=== PATIENT | female | born 1950 | race Caucasian/White ===

== ENCOUNTER 2024-08-01 17:31 | Inpatient (IN) | payer OTHER, SELFPAY ==
[2024-08-01] VITALS (8 sets, daily range): BP systolic 155–178; BP diastolic 82–97; BMI 22.8
[2024-08-01 12:01] LABS: % Eosinophils 1.8 % (0-6); % Immature Granulocytes 0.3 % (0-0.5); % Lymphocytes 45.1 % (20.5-51.1); % Monocytes 10.6 % (1.7-9.3); % Neutrophils 41.2 % (42.2-75.2); Absolute Eosinophils 0.1 10^3/uL (0-0.7); Absolute Lymphocytes 1.7 10^3/uL (1.2-3.4); Absolute Monocytes 0.4 10^3/uL (0.1-0.6); Absolute Neutrophils 1.6 10^3/uL (1.4-6.5); Hematocrit 35.7 % (37.0-47.0); Hemoglobin 12.3 g/dL (12.0-16.0); Mean Corp Hgb Conc. 34.5 g/dL (33.0-37.0); Mean Corpuscular Hgb 30.8 pg (27.0-31.0); Mean Corpuscular Volume 89.3 fL (81.0-99.0); Mean Platelet Volume 10.9 fL (7.4-10.4); Nucleated Red Blood Cells % 0 %; Platelet Count 201 10^3/uL (130-400); Red Cell Dist. Width 13.1 % (11.5-14.5); White Blood Cell Count 3.9 10^3/uL (4.8-10.8)
--- NOTE | 2024-08-01 12:34 | ED.GENMED ---
History of Present Illness
General
Chief Complaint: Abdominal Pain
Time Seen by Provider: 08/01/24 12:34
History of Present Illness
History of Present Illness:
TIME OF INITIAL ENCOUNTER: 12:35 PM
HPI: The patient came in from home by ambulance. Over the past several days, the patient's been having waves of nausea, lightheadedness/dizziness that worsens with changes in head position. She has a history of Parkinson's. She has not been
taking her medication for blood pressure but daughter has been giving her most of her medications for Parkinson's (2 times a day instead of 3 times a day). The patient reports no abdominal pain. She has had some cognitive issues in the past but
her cognitive dysfunction appears to be worse now. Urinary incontinence is chronic.
EXAM:
GENERAL: Well appearing in no distress
HEENT: Moist oral mucosa
CARDIOVASCULAR: No murmurs, normal heart rate, regular rhythm, No chest wall tenderness
PULMONARY: No respiratory distress, breath sounds are clear and equal
ABDOMEN: Soft with no peritoneal signs, no tenderness
NEUROLOGIC: Fair strength all extremities, no coordination deficits, normal finger-nose testing
PSYCHIATRIC: Limited insight and judgment, had significant trouble naming the month. Knows she is at [facility]
EXTREMITIES: Nontender, no edema, moves all extremities equally
SKIN: No rash, no lesions
NUMBER AND COMPLEXITY OF PROBLEMS ADDRESSED AT THE ENCOUNTER
� Chronic conditions affecting care: High blood pressure, hyperlipidemia, Parkinson's
� Acute Exacerbation and/or Progression of Chronic Illness: This is an acute problem
� Differential Diagnosis includes: Dehydration, worsening Parkinson's, positional vertigo, BPPV, nonspecific lightheadedness, medication noncompliance
AMOUNT AND/OR COMPLEXITY OF DATA TO BE REVIEWED AND ANALYZED
� I performed an independent evaluation of and my interpretation is:
EKG: Sinus 83, anterior T wave abnormality with no old to compare
CT: CT head shows dilation of the ventricles
X-rays:
Laboratory Studies: White count 3.9, hemoglobin normal, urinalysis does not show any signs of infectio, troponin less than 0.012 n
Other:
� Review of other/old records: No old records available for review
� Clinical information was obtained by an independent historian: I spoke to daughters and at bedside
� Prescriptions/Medications Considered but not given:
� Further testing considered but not performed:
RISK OF COMPLICATIONS AND/OR MORBIDITY OR MORTALITY OF PATIENT MANAGEMENT
� Social determinants of health affecting care: Lives at home, of note she is going to be evaluated for home care this coming Sunday
� Discussion with other providers: I discussed case with Dr. Hughes who agrees patient to stay in the hospital for physical therapy and consideration of LP/NPH workup.
� Escalation of care including admission/observation vs risk of discharge considered: Although the patient reports nausea she has no abdominal tenderness on exam. She reports no abdominal pain. There has been some worsening of
her mental status recently. Urinary incontinence is chronic and she has not been taking her Myrbetriq. The patient feels that taking her medications may be making her overall symptoms worse
ANY OTHER UPDATES:
The patient does feel improved after fluids, Antivert, Zofran was given. Although patient does have a neurologist at [place], family feels very concerned about her going home for outpatient management and feels she needs to stay in the hospital as
they are having trouble caring for her at home.
Phy Exam
Physical Exam
Physical Exam:
See HPI
Course
Orders/Labs/Results
Orders:
Orders
08/01/24 11:45
Complete Blood Count/With Diff Urgent
08/01/24 12:24
Electrocardiogram (*1) Urgent
Reason for Study: Vertigo / Dizzy
EKG- Treatment ONCE
08/01/24 12:29
Comprehensive Metabolic Panel Urgent
Lipase Urgent
08/01/24 12:42
Straight cath- Treatment ONCE
0.9% Sodium Chloride 1000 ml [Nss] 1,000 ml IV BOLUS
Famotidine [Pepcid] 20 mg IV NOW STA
Meclizine [Antivert] 12.5 mg PO NOW STA
Ondansetron Injectable [Zofran] 4 mg IV NOW STA
08/01/24 12:43
CT Head W/o Iv Contrast Urgent
Comment:
Reason For Exam: dizzy alt ms
08/01/24 12:46
EKG- Treatment ONCE
08/01/24 13:03
Urinalysis Reflex To Culture Urgent
Date Specimen was Collected: 08/01/24
Time Specimen was Collected: 13:02
Urine Microscopic Reflex Cult Urgent
08/01/24 13:58
Troponin I Urgent
Abnormal Lab Results
08/01/24 08/01/24 08/01/24
11:45 12:29 13:03
WBC 3.9 L 10^3/uL
(4.8-10.8)
RBC 4.00 L 10^6/uL
(4.20-5.40)
Hct 35.7 L %
(37.0-47.0)
MPV 10.9 H fL
(7.4-10.4)
Neutrophils % 41.2 L %
(42.2-75.2)
Monocytes % 10.6 H %
(1.7-9.3)
Chloride 109 H mmol/L
(98-107)
Glucose 105 H mg/dl
(70-99)
Alkaline Phosphatase 35 L U/L
(38-126)
Lipase 356 H U/L
(23-300)
Ur Occult Blood Reflex 1+ A
(Negative)
Urine RBC 3-6 A /HPF
(0-2)
08/01/24 11:45
08/01/24 12:29
Vital Signs
Initial and Last Documented VS:
Initial Vital Signs
Temp Pulse Resp Pulse Ox
36.8 C 85 18 100
08/01/24 11:37 08/01/24 11:37 08/01/24 11:37 08/01/24 11:37
Last Documented Vital Signs
Temp Pulse Resp BP Pulse Ox
36.8 C 77 18 178/88 100
08/01/24 11:37 08/01/24 14:00 08/01/24 14:00 08/01/24 14:00 08/01/24 11:37
*Critical Care Note
Total Time (30-74mins, 75-104mins- exclusive of procedures): Not Applicable
ED Attending Note
-
Portions of this chart may have been created with voice recognition software.� Occasional wrong word or��sound alike� substitutions may have occurred due to the inherent limitations of voice recognition software.
Discharge Plan
Departure
Patient Disposition: Admit
Date of Disposition: 08/01/24
Time of Disposition: 15:33
Presentation/result/management discussed w/ accepting MD/DO: Hospitalist
Discharge Problem:
Dizziness
Referrals:
Swapnil Stevens DO [Family Provider] -
Interventions
Interventions:
*Risk Screen - Suicide Last Done: 08/01/24 11:37
*General Assessment Last Done: 08/01/24 11:37
*Neglect/Abuse Screening Last Done: 08/01/24 11:37
OY-Ggiqut-Mvfrbwnagj Assessment Last Done: 08/01/24 12:35
Discharge Date and Time
Print Language: LUXEMBOURGISH
[2024-08-01] MEDS: NSS 1000 IV ×2 (12:57→22:28)
[2024-08-01] MEDS: ZOFRAN 4 MG IV (12:57)
[2024-08-01] MEDS: PEPCID 20 MG IV (12:58)
[2024-08-01] MEDS: ANTIVERT 12.5 MG PO (12:58)
[2024-08-01 13:04] LABS: ALT (SGPT) 18 U/L (0-35); AST (SGOT) 28 U/L (14-36); Albumin 4.7 g/dl (3.5-5.0); Alkaline Phosphatase 35 U/L (38-126); Blood Urea Nitrogen 14 mg/dl (7-17); Calcium 10.1 mg/dl (8.4-10.2); Carbon Dioxide 28 mmol/L (22-30); Chloride 109 mmol/L (98-107); Estimated Creatinine Clearance 63 ml/min; Glucose 105 mg/dl (70-99); Lipase 356 U/L (23-300); Potassium 4.3 mmol/L (3.5-5.1); Sodium 143 mmol/L (135-145); Total Bilirubin 0.7 mg/dl (0.2-1.3); Total Protein 7.5 g/dl (6.3-8.2); eGFR > 60.00
[2024-08-01 13:22] LABS: Urine Albumin Negative (Neg - Trace); Urine Bilirubin Negative (Negative); Urine Character Clear (Clear); Urine Color Yellow; Urine Glucose Negative (Negative); Urine Ketone Negative (Negative); Urine Leukocyte Negative (Negative); Urine Nitrite Negative (Negative); Urine Occult Blood 1+ (Negative); Urine Specific Gravity 1.015 (<1.030); Urine Urobilinogen Negative (Neg - 1+)
[2024-08-01 14:23] LABS: Urine Squamous Cell 0-2 /LPF (Few)
[2024-08-01 14:24] LABS: Urine Amorphous Seen
[2024-08-01 14:25] LABS: Urine White Cell 0-2 /HPF (0-5)
[2024-08-01 14:37] LABS: Troponin I < 0.012 ng/ml
[2024-08-01] MEDS: TYLENOL 650 MG PO (15:55)
--- NOTE | 2024-08-01 16:03 | HPS.HSE ---
Addendum entered and electronically signed by Karlos Morejon MD 08/01/24 17:39:
I personally performed a history and physical exam of the patient and discussed management with the resident. I reviewed the resident's note and agree with the documented findings and plan of care HPI/CC.
Patient is 73-year-old female with past medical history of Parkinson's disease, essential hypertension, hyperlipidemia, depression, overactive bladder was brought in by family after patient was noted to having worsening confusion over last 5 6 days.
Patient initially started developing some nausea and has been persistently nauseous for some time no reported vomiting. No abdominal pain diarrhea fever. Patient has poor oral intake for last few days. Patient started to notice having worsening
confusion as well by family member, no owning. Does have history of Parkinson although no major problem with memories. Patient balance has been problematic for some time and patient have recurrent fall, patient family denies of patient having
significant fall and head injury. Patient has walker and cane at home although not using this. Patient also complained of dizziness although no syncope reported. No reported chest discomfort/palpitation. Patient has been afebrile.
Of note patient follows with Dr. Olmedo at [facility] and has been not taking her regular medication for last 10 days or so, patient daughter has requested patient to take her home medication although patient was worried that doctor might be
giving wrong doses and did not take them.
HEENT: No pallor, cyanosis, or jaundice. Throat clear.
NECK: Supple. No JVD.
RESPIRATORY: Lungs clear to auscultation.
CVS: S1, S2 normal. RRR. No murmur, rub or gallop.
ABDOMEN: Soft, non-tender. No distension. BS+/normal.
EXTREMITIES: No peripheral cyanosis or edema.
MIG TIG WELDER: AOx3. No focal deficits.
1. Acute encephalopathy
-Reason remains unclear
- UA negative, check COVID. Afebrile
- Not on any sedating medication
- CT head showing some ventricular enlargement
- With associated balance issues check B12 level
- Continue supportive care, patient impulsive and at risk of fall. Bed alarm is recommended
2. Nausea without vomiting
- Maintain on some slow IV fluid NS at a rate of 75 mL/h
- Clear liquid diet for the night
- As needed Zofran
3. Hypertensive urgency
- Secondary to noncompliance to blood pressure medication
- Continue home regimen of losartan/Toprol
- As needed hydralazine for systolic blood pressure greater than 160
Full code
Original Note:
Family Physician
-
Family Physician: Swapnil Stevens
Chief Complaint
-
nausea, lightheadedness, dizziness
History of Present Illness
73yo F [facility] HTN, HLD, Parkinson's presented to [facility] ED for nausea, lightheadedness, and dizziness that worsens w head position change. Pt has not been taking her HTN meds and not taking her Parkinson's meds as often as she should. Hx cognitive
issues. Chronic urinary incontinence. Pt is feeling better after receiving IVF and her medications. Pt denies having a fall for the past year.
Medical History
Past Medical History
Past Medical History: Reports HTN, Hypercholesterolemia and Other (Parkinson's disease)
Past Surgical History: Reports None
Social History
Tobacco: Former Smoker
Alcohol: None
Drug: None
Living: Alone
Family History
Family History: Not pertinent
Allergies / Home Medications
Allergies reflects when Allergies were last updated in [facility].
Home Medications with original date entered in [facility]
Allergy/Medication List:
Allergies
Allergy/AdvReac Type Severity Reaction Status Date / Time
No Known Allergies Allergy Unverified 08/01/24 11:37
Home Medications
carbidopa 25 mg-levodopa 100 mg tablet 1.5 tab PO TID 08/01/24
losartan 50 mg tablet 50 mg PO DAILY 08/01/24
metoprolol succinate 25 mg tablet,extended release 24 hr (Toprol XL) 25 mg PO DAILY 08/01/24
mirabegron 50 mg tablet,extended release 24 hr (Myrbetriq) 50 mg PO DAILY 08/01/24
rosuvastatin 40 mg tablet (Crestor) 40 mg PO QPM 08/01/24
sertraline 50 mg tablet 50 mg PO DAILY 08/01/24
solifenacin 10 mg tablet (Vesicare) 10 mg PO DAILY 08/01/24
Review of Systems
-
History Source: Patient
Constitutional: Reports No Symptoms
EENT: Reports No Symptoms
Respiratory: Reports No Symptoms
Cardiac: Reports No Symptoms
Abdomen/GI: Reports No Symptoms
Musculoskeletal: Reports No Symptoms
Skin: Reports No Symptoms
Neurological: Reports No Symptoms
Physical Exam
Vital Signs
Vital Signs
Temp Pulse Resp BP Pulse Ox
98.2 F 77 18 178/88 100
08/01/24 11:37 08/01/24 14:00 08/01/24 14:00 08/01/24 14:00 08/01/24 11:37
Physical Exam
General: Well Developed, Well Nourished, No Apparent Distress and Comfortable
HEENT: NormoCephalic, Anicteric, Moist mucous membranes and Atraumatic
Respiratory: Clear and Non Labored Respirations
Cardiac: S1/S2 and Regular Rhythm
GI: Soft, Non Tender, Non Distended and Normal Bowel Sounds
Musculoskeletal: No Clubbing, No Cyanosis and No Edema
Skin: Warm and Dry
Neuro: Awake and AO x 3
Psych: Calm and Confused
Laboratory Results
-
08/01/24 11:45
08/01/24 12:29
Laboratory Results
Total Bilirubin 0.7 mg/dl (0.2-1.3) 08/01/24 12:29
AST 28 U/L (14-36) 08/01/24 12:29
ALT 18 U/L (0-35) 08/01/24 12:29
Alkaline Phosphatase 35 U/L (38-126) L 08/01/24 12:29
Troponin I < 0.012 ng/ml 08/01/24 13:58
Lipase 356 U/L (23-300) H 08/01/24 12:29
Impression/Plan
-
IMPRESSION:
73yo F [facility] HTN, HLD, Parkinson's disease presented to [facility] ED for nausea, lightheadedness, and dizziness that worsens w head position change. Pt has not been taking her HTN meds and not taking her Parkinson's meds as often as she should. Hx
cognitive issues.
PLAN:
Possible Toxic-metabolic encephalopathy vs Possible NPH
Hx of cognitive issues
- SIRS: leukopenia, tachycardia
- u/a: neg uti
- bcx x2: pending
- flu/covid: pending
- troponins undetectable
- Na wnl
- Head CT: No acute intracranial abnormality. Nonspecific dilatation of the ventricles which may be chronic and related to central volume loss with communicating hydrocephalus/normal pressure hydrocephalus also a consideration. Nonspecific mild
periventricular white matter hypoattenuation, likely reflective of microvascular ischemic disease. Transependymal flow of CSF felt less likely.
- PT/OT
- CXR
- vit b12
- bed alarms
- appreciate neurology input
Dizziness, nausea
- orthostatic vitals
- PT/OT
Leukopenia
- monitor
Elevated lipase
- possibly due to pancreatitis, though no epigastric tenderness on exam
- denies hx of pancreatitis
- monitor
Parkinson's
- neurologist Dr Pulido at [facility]
- cont home carbidopa-levodopa
HTN/HLD
- cont losartan
- cont metoprolol
- cont statin
Chronic urinary retention
- cont myrbetriq, solifenacin
Depression/Anxiety
- cont sertraline
Diet: regular
DVT ppx: lovenox
Code status: DNR
[2024-08-01] MEDS: LOVENOX 40 MG SC (20:33)
[2024-08-01] MEDS: CRESTOR 40 MG PO (20:33)
[2024-08-01 21:50] LABS: COVID-19 Antigen Negative (Negative)
[2024-08-01] MEDS: SINEMET 25-100 1.5 TABLET PO (22:27)
[2024-08-02] VITALS (8 sets, daily range): BP systolic 76–176; BP diastolic 42–97; PULSE 78–91; BMI 22.8
[2024-08-02 07:38] LABS: % Basophils 1.3 % (0-2); % Eosinophils 2.2 % (0-6); % Immature Granulocytes 0.2 % (0-0.5); % Monocytes 11.3 % (1.7-9.3); Absolute Basophils 0.1 10^3/uL (0-0.2); Absolute Eosinophils 0.1 10^3/uL (0-0.7); Absolute Lymphocytes 1.8 10^3/uL (1.2-3.4); Absolute Monocytes 0.5 10^3/uL (0.1-0.6); Hematocrit 35.2 % (37.0-47.0); Hemoglobin 11.8 g/dL (12.0-16.0); Mean Corp Hgb Conc. 33.5 g/dL (33.0-37.0); Mean Corpuscular Hgb 30.6 pg (27.0-31.0); Mean Corpuscular Volume 91.4 fL (81.0-99.0); Mean Platelet Volume 10.5 fL (7.4-10.4); Nucleated Red Blood Cells % 0 %; Platelet Count 203 10^3/uL (130-400); Red Blood Cell Count 3.85 10^6/uL (4.20-5.40); Red Cell Dist. Width 13.1 % (11.5-14.5); White Blood Cell Count 4.5 10^3/uL (4.8-10.8)
--- NOTE | 2024-08-02 07:41 | PTCARENOTE ---
Late documentation note for 08/02 1700. At this time pt requested to get back to bed. I assisted her back to bed. Ten minutes later she was very anxious, unable to get words out because she was stuttering so bad combined with trouble with word
finding difficulty. She was able to point to her phone . I looked at her phone and she was locked out when i said are you locked out she was able to say yes. . She had non verbal ques of anxiety about her phone. We called her daughter for the
code and were able to get back into her phone . pt was happier and calmer after this; however she started making multiple attempts to get out of bed to go to bathroom. She was more skidish, not following commands and getting tangled in her wires.
PT high fall risk and took extra time to check on her to ensure her safety.
[2024-08-02 08:03] LABS: ALT (SGPT) < 10 U/L (0-35); AST (SGOT) 25 U/L (14-36); Albumin 4.4 g/dl (3.5-5.0); Alkaline Phosphatase 38 U/L (38-126); Blood Urea Nitrogen 9 mg/dl (7-17); Calcium 9.7 mg/dl (8.4-10.2); Carbon Dioxide 26 mmol/L (22-30); Chloride 111 mmol/L (98-107); Estimated Creatinine Clearance 74 ml/min; Glucose 93 mg/dl (70-99); Lipase 96 U/L (23-300); Potassium 3.9 mmol/L (3.5-5.1); Sodium 144 mmol/L (135-145); Total Bilirubin 0.8 mg/dl (0.2-1.3); eGFR > 60.00
[2024-08-02 08:58] LABS: Vitamin B12 439 pg/ml (239-931)
[2024-08-02] MEDS: COZAAR 50 MG PO (09:51)
[2024-08-02] MEDS: ZOLOFT 50 MG PO (09:51)
[2024-08-02] MEDS: TOPROL XL 25 MG PO (09:51)
[2024-08-02] MEDS: COLACE 100 MG PO ×2 (09:51→20:09)
[2024-08-02] MEDS: VESICARE 10 MG PO (09:51)
[2024-08-02] MEDS: MYRBETRIQ EXTENDED RELEASE 50 MG PO (09:52)
[2024-08-02] MEDS: SINEMET 25-100 1.5 TABLET PO ×3 (09:52→22:01)
[2024-08-02] MEDS: NSS 1000 IV ×2 (09:53→17:35)
--- NOTE | 2024-08-02 11:53 | W.PN.HOSP.TC ---
Today's Communication/Plan
-
see note
await neuro input
Assessment / Plan
Assessment / Plan
1. Acute toxic metabolic encephalopathy
-Reason remains unclear
- UA negative, neg COVID. Afebrile
- Not on any sedating medication
- CT head showing some ventricular enlargement
- With associated balance issues B12 level checked and normal
- Continue supportive care, patient impulsive and at risk of fall. Bed alarm is recommended
2. Nausea without vomiting - Improved
- Maintain on some slow IV fluid for now, will discontinue once patient able to maintain food and
- Currently on reg diet
- As needed Zofran
3. Hypertensive urgency
- Secondary to noncompliance to blood pressure medication
- Continue home regimen of losartan/Toprol
- As needed hydralazine for systolic blood pressure greater than 160
4. 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
- With patient presentation and CT finding questioning some ventricular enlargement question of [employer]
- Neuro has been involved in care and await further evaluation
- Patient may benefit with diagnostic lumbar tap
- PT OT evaluation ordered
5. Overactive bladder
- Patient on Myrbetriq
6. Parkinson's disease
- Patient follows up with [facility]
- Reported noncompliance to medication by daughter
- Maintain on home dose of Sinemet 1 and half tablet 3 times daily
Full code
Total time spent ; 52 mins
Anticipated Discharge: 24 - 48 hours
Subjective/Interval History
-
Date of Service: August 02, 2024
Patient remains confused/disoriented
Afebrile overnight
No reported other acute issues
Objective Data
-
Labs:
Laboratory Results
08/02/24
06:47
WBC 4.5 L
Hgb 11.8 L
Hct 35.2 L
Plt Count 203
Sodium 144
Potassium 3.9
Chloride 111 H
Carbon Dioxide 26
BUN 9
Creatinine 0.6
Glucose 93
Calcium 9.7
Total Bilirubin 0.8
AST 25
ALT < 10
Alkaline Phosphatase 38
Vital Signs:
Vital Signs
Temp Pulse Resp BP Pulse Ox
98.6 F 80 18 132/62 99
08/02/24 07:00 08/02/24 07:00 08/02/24 07:00 08/02/24 11:45 08/02/24 07:00
I&O
08/01/24 08/02/24 08/03/24
06:59 06:59 06:59
Intake Total 240 / 240
Balance 240 / 240
Review of Systems
-
Unable to obtain full review of systems at this time due to: Acuity
Physical Exam
-
General: Negative Appears in Distress
HEENT: Negative Oxygen
Neuro: Awake, Alert and No Motor Deficits; Negative Oriented
--- NOTE | 2024-08-02 13:08 | PTCARENOTE ---
PT is alert x 1-2 self only. pt with visual hallucinations, confused with a left sided foot neglect with weakness noted throughout. while walking her to bathroom. her left foot kept being malpositioned out to the left and she was unaware of it.
When i asked her about her foot she looked down and said, 'oh yes it is sticking out' she picked her foot up and realigned it properly to continue walking. She is off balance clumpsy. PT OT worked with patient and had simliar finding. NPH with
ventricular dilation noted on CT scan, neuro consulted. PT with poor po intake IVF NSS infusing at 100 ml. BP 176 and then 134. PT made two attempts to get oob by self. her bed alarm went off. PT received education on calling for nurse. She agreed
to call nex ttime, (she did not ring). Chair alarm placed and patient now sitting in teena. yellow band on. call gallo in hand and is eating lunch
--- NOTE | 2024-08-02 16:37 | CON.NEURO ---
Neuro Assessment/Plan
Assessment
Head CT img's rev'd agree central more than cortical atrophy
a good story for NPH with several weeks of gait symptoms followed by several days of cognitive symptoms
brain mri w/o contrast
PT eval for Tinetti score, high volume tap Sunday, repeat Tinetti immediately afterwards
Parkinson's continue Sinemet 1.5 tab TID
Consultation
Order
Date of Consultation: 08/02/24
Requesting Provider: Raina Mcpherson DO
Reason for Consult: NPH
Subjective/Objective
Subjective Data
Date of Service: August 02, 2024
from h&p:
Patient is 73-year-old female with past medical history of Parkinson's disease, essential hypertension, hyperlipidemia, depression, overactive bladder was brought in by family after patient was noted to having worsening confusion over last 5 6 days.
Patient initially started developing some nausea and has been persistently nauseous for some time no reported vomiting. No abdominal pain diarrhea fever. Patient has poor oral intake for last few days. Patient started to notice having worsening
confusion as well by family member, no . Does have history of Parkinson although no major problem with memories. Patient balance has been problematic for some time and patient have recurrent fall, patient family denies of patient having
significant fall and head injury. Patient has walker and cane at home although not using this. Patient also complained of dizziness although no syncope reported. No reported chest discomfort/palpitation. Patient has been afebrile.
Of note patient follows with Dr. Olmedo at [place] [facility] and has been not taking her regular medication for last 10 days or so, patient daughter has requested patient to take her home medication although patient was worried that doctor might be
giving wrong doses and did not take them.
this afternoon, she also reports several weeks of worsening gait/balance. Today her blood pressure has come down, she reports mentation is improved but not back to baseline
Objective Data
Vital Signs
Temp Pulse Resp BP Pulse Ox
36.4 C 79 17 106/61 95
08/02/24 15:00 08/02/24 15:00 08/02/24 15:00 08/02/24 15:00 08/02/24 15:00
Lab Results
08/02/24 06:47
08/02/24 06:47
Sodium 144 mmol/L (135-145) 08/02/24 06:47
Potassium 3.9 mmol/L (3.5-5.1) 08/02/24 06:47
BUN 9 mg/dl (7-17) 08/02/24 06:47
Glucose 93 mg/dl (70-99) 08/02/24 06:47
Calcium 9.7 mg/dl (8.4-10.2) 08/02/24 06:47
Vitamin B12 439 pg/ml (239-931) 08/02/24 06:47
Patient Allergies
No Known Allergies Allergy (Unverified 08/01/24 11:37)
Physical Exam
-
Awake and alert, disoriented
face symmetric
grossly full strength
bradykinesia, cogwheel rigidity
Medications
-
Active Medications
Generic Name Dose Route Start Last Admin
Trade Name Freq PRN Reason Stop Dose Admin
Carbidopa/Levodopa 1.5 tablet 08/01/24 22:00 08/02/24 09:52
Carbidopa (25 Mg)/Levodopa (100 Mg) Regular Release Tablet PO 08/29/24 21:59 1.5 tablet
TID AGATHA Administration
Docusate Sodium 100 mg 08/02/24 08:00 08/02/24 09:51
Docusate Sodium 100 Mg Capsule PO 08/30/24 07:59 100 mg
BID AGATHA Administration
Enoxaparin Sodium 40 mg 08/01/24 18:31 08/01/24 20:33
Enoxaparin Sodium 40 Mg/0.4 Ml Syringe SC 08/29/24 18:30 40 mg
QPM AGATHA Administration
Hydralazine HCl 10 mg 08/02/24 10:18
Hydralazine 20 Mg/Ml Vial IV 08/30/24 10:17
Q4HPRN PRN
FOR SBP > 160 or DBP > 110
Sodium Chloride 1,000 mls @ 100 mls/hr 08/01/24 18:31 08/02/24 09:53
Nss IV 1,000 mls
.Q10H AGATHA Administration
Losartan Potassium 50 mg 08/02/24 08:00 08/02/24 09:51
Losartan 50 Mg Tablet PO 08/30/24 07:59 50 mg
DAILY AGATHA Administration
Metoprolol Succinate 25 mg 08/02/24 08:00 08/02/24 09:51
Metoprolol 25 Mg Extended Release Tablet PO 08/30/24 07:59 25 mg
DAILY AGATHA Administration
Mirabegron 50 mg 08/02/24 08:00 08/02/24 09:52
Mirabegron Extended Release 25 Mg Tab (Non Form) PO 08/30/24 07:59 50 mg
DAILY AGATHA Administration
Rosuvastatin Calcium 40 mg 08/01/24 18:31 08/01/24 20:33
Rosuvastatin (Crestor) 40 Mg Tablet PO 08/29/24 18:30 40 mg
QPM AGATHA Administration
Sennosides 8.6 mg 08/02/24 22:00
Sennosides (Senokot) 8.6 Mg Tablet PO 08/30/24 21:59
HS AGATHA
Sertraline HCl 50 mg 08/02/24 08:00 08/02/24 09:51
Sertraline 50 Mg Tablet PO 08/30/24 07:59 50 mg
DAILY AGATHA Administration
Sodium Chloride 0 flush 08/01/24 19:00
Sodium Chloride 0.9% (Flush) Syringe IV 08/29/24 18:59
PER PROTOCOL AGATHA
Solifenacin 10 mg 08/02/24 08:00 08/02/24 09:51
Solifenacin Succinate (Vesicare) 5 Mg Tablet PO 08/30/24 07:59 10 mg
DAILY AGATHA Administration
Home Medications
�Medication �Instructions �Recorded
carbidopa 25 mg-levodopa 100 mg 1.5 tab PO TID Neurological 08/01/24
tablet Condition
losartan 50 mg tablet 50 mg PO DAILY Blood Pressure 08/01/24
metoprolol succinate 25 mg 25 mg PO DAILY Blood Pressure 08/01/24
tablet,extended release 24 hr
(Toprol XL)
mirabegron 50 mg tablet,extended 50 mg PO DAILY Urinary Issue 08/01/24
release 24 hr (Myrbetriq)
rosuvastatin 40 mg tablet (Crestor) 40 mg PO QPM High Cholesterol 08/01/24
sertraline 50 mg tablet 50 mg PO DAILY Mental 08/01/24
Health/Anxiety
solifenacin 10 mg tablet (Vesicare) 10 mg PO DAILY Urinary Issue 08/01/24
[2024-08-02] MEDS: CRESTOR 40 MG PO (17:35)
[2024-08-02] MEDS: LOVENOX 40 MG SC (17:35)
[2024-08-02] MEDS: TYLENOL 650 MG PO (22:01)
[2024-08-02] MEDS: SENOKOT 8.6 MG PO (22:02)
[2024-08-03] MEDS: NSS 1000 IV ×2 (05:17→17:12)
[2024-08-03 05:33] LABS: Hematocrit 34.1 % (37.0-47.0); Hemoglobin 11.5 g/dL (12.0-16.0); Mean Corp Hgb Conc. 33.7 g/dL (33.0-37.0); Mean Corpuscular Hgb 31.1 pg (27.0-31.0); Mean Corpuscular Volume 92.2 fL (81.0-99.0); Mean Platelet Volume 10.6 fL (7.4-10.4); Platelet Count 176 10^3/uL (130-400); White Blood Cell Count 3.8 10^3/uL (4.8-10.8)
[2024-08-03 05:54] LABS: Blood Urea Nitrogen 9 mg/dl (7-17); Calcium 9.5 mg/dl (8.4-10.2); Carbon Dioxide 27 mmol/L (22-30); Chloride 113 mmol/L (98-107); Estimated Creatinine Clearance 63 ml/min; Glucose 103 mg/dl (70-99); Sodium 143 mmol/L (135-145); eGFR > 60.00
[2024-08-03 07:15] VITALS: BP 175/100
[2024-08-03 07:20] VITALS: BP 138/88; BP 148/104; BP 175/100; PULSE 125; PULSE 81; PULSE 87
[2024-08-03] MEDS: ZOLOFT 50 MG PO (09:17)
[2024-08-03] MEDS: COZAAR 50 MG PO (09:18)
[2024-08-03] MEDS: VESICARE 10 MG PO (09:18)
[2024-08-03] MEDS: SINEMET 25-100 1.5 TABLET PO ×3 (09:18→21:26)
[2024-08-03] MEDS: TOPROL XL 25 MG PO ×2 (09:18→12:19)
[2024-08-03] MEDS: COLACE 100 MG PO ×2 (09:18→19:56)
[2024-08-03] MEDS: MYRBETRIQ EXTENDED RELEASE 50 MG PO (09:18)
[2024-08-03 11:07] VITALS: BP 159/97
--- NOTE | 2024-08-03 11:58 | W.PN.HOSP.TC ---
Today's Communication/Plan
-
for large volume LP tomorrow
repeat ambulation assessment after
increase toprol dose
continue supportive care
Assessment / Plan
Assessment / Plan
1. Acute toxic metabolic encephalopathy - Ongoing
- Reason remains unclear
- UA negative, neg COVID. Afebrile
- Not on any sedating medication
- CT head showing some ventricular enlargement
- With associated balance issues B12 level checked and normal
- Continue supportive care, patient impulsive and at risk of fall. Bed alarm is recommended
2. 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
- With patient presentation and CT finding questioning some ventricular enlargement question of NPH
- Neuro has been involved in care and await further evaluation
- MRI brain without contrast done and result pending, patient had some word finding difficulty today in the morning
- Neurology intending to do large-volume lumbar tap for blood pressure evaluation for improvement of gait/symptoms
3. Nausea without vomiting - Improved
- Maintain on some slow IV fluid for now, will discontinue once patient able to maintain food and
- Currently on reg diet
- As needed Zofran
4. Hypertensive urgency
- Secondary to noncompliance to blood pressure medication
- Continue home regimen of losartan/Toprol
- As needed hydralazine for systolic blood pressure greater than 160
- Patient blood pressure/heart rate was uncontrolled in the morning today, improved after morning dose. Increasing Toprol to 50 mg daily
5. Overactive bladder
- Patient on Myrbetriq
6. Parkinson's disease
- Patient follows up with [place] [facility]
- Reported noncompliance to medication by daughter
- Maintain on home dose of Sinemet 1 and half tablet 3 times daily
Full code
Total time spent ; 51 mins
Anticipated Discharge: 24 - 48 hours
Subjective/Interval History
-
Date of Service: August 03, 2024
Patient remains disoriented
Noted to be tachycardic hypotensive in the morning although asymptomatic beside minimal headache
Objective Data
-
Labs:
Laboratory Results
08/03/24
05:06
WBC 3.8 L
Hgb 11.5 L
Hct 34.1 L
Plt Count 176
Sodium 143
Potassium 4.0
Chloride 113 H
Carbon Dioxide 27
BUN 9
Creatinine 0.7
Glucose 103 H
Calcium 9.5
Vital Signs:
Vital Signs
Temp Pulse Resp BP Pulse Ox
97.7 F 75 16 159/97 99
08/03/24 11:07 08/03/24 11:07 08/03/24 11:07 08/03/24 11:07 08/03/24 07:15
I&O
08/02/24 08/03/24 08/04/24
06:59 06:59 06:59
Intake Total 240 / 240 2400 / 2400
Balance 240 / 240 2400 / 2400
Review of Systems
-
Unable to obtain full review of systems at this time due to: Acuity
Physical Exam
-
General: Negative Appears in Distress
HEENT: Negative Oxygen
Respiratory: Clear to Auscultation
Cardiac: Regular Rhythm and S1/S2; Negative Murmur
Neuro: Awake, Alert and No Motor Deficits; Negative Oriented
[2024-08-03 15:10] VITALS: BP 144/79
[2024-08-03] MEDS: LOVENOX 40 MG SC (17:12)
[2024-08-03] MEDS: CRESTOR 40 MG PO (17:12)
[2024-08-03] MEDS: SENOKOT 8.6 MG PO (21:27)
[2024-08-03 23:40] VITALS: BP 149/84
[2024-08-04] VITALS (11 sets, daily range): BP systolic 65–157; BP diastolic 59–91
[2024-08-04 06:27] LABS: Hematocrit 36.7 % (37.0-47.0); Hemoglobin 12.4 g/dL (12.0-16.0); Mean Corp Hgb Conc. 33.8 g/dL (33.0-37.0); Mean Corpuscular Hgb 30.8 pg (27.0-31.0); Mean Corpuscular Volume 91.1 fL (81.0-99.0); Mean Platelet Volume 10.7 fL (7.4-10.4); Platelet Count 210 10^3/uL (130-400); Red Blood Cell Count 4.03 10^6/uL (4.20-5.40); Red Cell Dist. Width 12.9 % (11.5-14.5); White Blood Cell Count 5.6 10^3/uL (4.8-10.8)
[2024-08-04 06:47] LABS: Blood Urea Nitrogen 8 mg/dl (7-17); Calcium 9.7 mg/dl (8.4-10.2); Carbon Dioxide 27 mmol/L (22-30); Chloride 111 mmol/L (98-107); Estimated Creatinine Clearance 74 ml/min; Glucose 106 mg/dl (70-99); Potassium 3.9 mmol/L (3.5-5.1); Sodium 143 mmol/L (135-145); eGFR > 60.00
--- NOTE | 2024-08-04 07:52 | W.PN.HOSP.TC ---
Addendum entered and electronically signed by Anu Snell MD 08/04/24 15:53:
I saw and evaluated the patient independently. I reviewed the resident�s note and agree with findings and plan as documented by Dr. Mcpherson.
GENERAL: well developed, well nourished, female in no apparent distress
HEENT: NC/AT
HEART: regular rate and rhythm, +S1, +S2
LUNGS : clear to auscultation bilaterally
ABDOM: soft, nontender, nondistended, + bowel sounds
EXT: no cyanosis, clubbing, or edema
NEUROLOGIC: grossly intact
Acute toxic metabolic encephalopathy - Ongoing --to me more like confusion/dementia--concern for NPH--apprec neuro--await large volume LP followed by therapy re-eval-- UA negative, neg COVID- Afebrile-- Not on any sedating medication- With
associated balance issues B12 level checked and normal
Suspected NPH- With patient presentation and CT finding questioning some ventricular enlargement question of NPH- Neuro has been involved in care and await further evaluation- MRI brain without contrast done and result pending, patient had some word
finding difficulty today in the morning- Neurology intending to do large-volume lumbar tap for blood pressure evaluation for improvement of gait/symptoms
Nausea without vomiting - Improved-- As needed Zofran
Hypertensive urgency- Secondary to noncompliance to blood pressure medication- Continue home regimen of losartan/Toprol- As needed hydralazine for systolic blood pressure greater than 160
Overactive bladder-- Patient on Myrbetriq
Parkinson's disease- Patient follows up with [place] neurolog[facility]- Reported noncompliance to medication by daughter- Maintain on home dose of Sinemet 1 and half tablet 3 times daily
code status--Full code
Original Note:
Today's Communication/Plan
-
- LP today
- PT/OT re-eval s/p LP
Assessment / Plan
Assessment / Plan
IMPRESSION:
73yo F [facility] HTN, HLD, Parkinson's disease presented to [facility] ED for nausea, lightheadedness, and dizziness that worsens w head position change. Pt has not been taking her HTN meds and not taking her Parkinson's meds as often as she should. Hx
cognitive issues.
PLAN:
Toxic-metabolic encephalopathy vs possible NPH
Hx of cognitive issues
- SIRS: leukopenia, tachycardia
- u/a: neg uti
- bcx x2: no growth at 48h
- flu/covid: neg
- vit B12 WNL
- Head CT: No acute intracranial abnormality. Nonspecific dilatation of the ventricles which may be chronic and related to central volume loss with communicating hydrocephalus/normal pressure hydrocephalus also a consideration. Nonspecific mild
periventricular white matter hypoattenuation, likely reflective of microvascular ischemic disease. Transependymal flow of CSF felt less likely.
- CXR: No acute cardiopulmonary abnormality.
- brain MRI: No acute intracranial abnormality noted. Moderate atrophy with sequelae of moderate small vessel ischemic disease. There is mild prominence of the ventricular system, however there are no additional findings suggestive of normal
pressure hydrocephalus.
- PT/OT - reevaluate s/p LP
- neuro input appreciated - possible diagnostic/therapeutic LP
Dizziness, nausea likely secondary to orthostatic HoTN
- improved
- orthostatic vitals - positive
- PT/OT - recommend acute rehab
Hypertensive urgency
- secondary to noncompliance to BP meds
- cont home toprol/losartan
- hydralazine for SBP>160
Elevated lipase
- possibly due to pancreatitis, though no epigastric tenderness on exam
- denies hx of pancreatitis
- monitor
Parkinson's
- neurologist Dr Pulido at [place]
- reported noncompliance
- cont home carbidopa-levodopa
HTN/HLD
- cont losartan
- cont metoprolol
- cont statin
Overactive bladder
- cont myrbetriq, solifenacin
Depression/Anxiety
- cont sertraline
Diet: regular
DVT ppx: lovenox
Code status: DNR
Anticipated Discharge: 24 - 48 hours
Subjective/Interval History
-
Date of Service: August 04, 2024
No acute overnight events. PT/OT recommending acute rehab. Pt endorses difficulty with word finding
Objective Data
-
Labs:
Laboratory Results
08/04/24 08/04/24
05:50 07:50
WBC 5.6
Hgb 12.4
Hct 36.7 L
Plt Count 210
PT Pending
INR Pending
Sodium 143
Potassium 3.9
Chloride 111 H
Carbon Dioxide 27
BUN 8
Creatinine 0.6
Glucose 106 H
Calcium 9.7
Vital Signs:
Vital Signs
Temp Pulse Resp BP Pulse Ox
98.6 F 74 18 131/86 97
08/04/24 07:42 08/04/24 07:42 08/04/24 07:42 08/04/24 07:42 08/04/24 07:42
I&O
08/03/24 08/04/24 08/05/24
06:59 06:59 06:59
Intake Total 2400 / 2400 2139 / 2139
Balance 2400 / 2400 2139 / 2139
Review of Systems
-
History Source: Patient
Constitutional: Reports No Symptoms
[2024-08-04 08:10] LABS: PT 13.7 Sec (11.4-14.6)
[2024-08-04] MEDS: SINEMET 25-100 1.5 TABLET PO ×3 (09:03→20:59)
[2024-08-04] MEDS: COLACE PO (09:03)
[2024-08-04] MEDS: ZOLOFT 50 MG PO (09:05)
[2024-08-04] MEDS: VESICARE 10 MG PO (09:05)
[2024-08-04] MEDS: COZAAR 50 MG PO (09:05)
[2024-08-04] MEDS: TOPROL XL 50 MG PO (09:05)
[2024-08-04] MEDS: MYRBETRIQ EXTENDED RELEASE 50 MG PO (09:05)
--- NOTE | 2024-08-04 16:59 | W.PN.UPDATE ---
Update Note
Progress Note Update
LP performed. Drained 8 cc of fluid. Fluid was at low pressure and took a long time to drain, not practical to do high volume drainage.
--- NOTE | 2024-08-04 17:02 | CM ---
Patient seen at bedside with physicians. Patient for procedure today and will review for possible PM&R consult. CM will continue to follow for discharge planning needs.
Plan; PM&R consult acute rehab.
[2024-08-04 17:32] LABS: Spinal Fluid Glucose 76 mg/dl (40-70); Spinal Fluid Protein 74 mg/dl (12-60)
[2024-08-04] MEDS: CRESTOR 40 MG PO (17:34)
[2024-08-04] MEDS: LOVENOX 40 MG SC (17:35)
[2024-08-04] MEDS: TYLENOL 650 MG PO (17:35)
[2024-08-04 17:43] LABS: CSF Clarity Clear; CSF Color Colorless; CSF Tube # 3; White Cell Count/CSF 1 mm^3 (0-5)
[2024-08-04 17:44] LABS: Red Cell Count/CSF 4 mm^3
--- NOTE | 2024-08-04 18:14 | W.PN.NEURO.1 ---
Today's Communication / Plan
-
CSF viral encephalitis PCR, autoimmune/paraneoplastic antibodies,
start IVIG,
CT chest/abd/pelvis cancer screen
Neuro Assessment/Plan
Assessment
Head CT img's rev'd agree central more than cortical atrophy
brain mri w/o contrast showing central atrophy, white matter changes, no other signs of NPH
NPH has been ruled out, no need for repeat tinetti
CSF WBC 1, glucose 76, protein 74,
with ~1 week of memory loss, rapidly progressing, and now hallucinations, no apparent acute medical illness to explain this, could be consistent with encephalitis, with autoimmune more likely than viral. will check CSF viral encephalitis PCR,
autoimmune/paraneoplastic antibodies, start IVIG, CT chest/abd/pelvis cancer screen
Parkinson's continue Sinemet 1.5 tab TID
Subjective/Objective
Subjective Data
Date of Service: August 04, 2024
had LP today, CSF low pressure, 8 cc drained, not possible to do high volume tap
nurse reports after procedure patient seeing rainbows (hallucination) which patient now denying.
Objective Data
Vital Signs
Temp Pulse Resp BP Pulse Ox
36.7 C 67 16 156/91 100
08/04/24 18:00 08/04/24 18:00 08/04/24 18:00 08/04/24 18:00 08/04/24 18:00
Lab Results
08/04/24 05:50
08/04/24 05:50
PT 13.7 Sec (11.4-14.6) 08/04/24 07:50
INR 1.00 08/04/24 07:50
Sodium 143 mmol/L (135-145) 08/04/24 05:50
Potassium 3.9 mmol/L (3.5-5.1) 08/04/24 05:50
BUN 8 mg/dl (7-17) 08/04/24 05:50
Glucose 106 mg/dl (70-99) H 08/04/24 05:50
Calcium 9.7 mg/dl (8.4-10.2) 08/04/24 05:50
Vitamin B12 439 pg/ml (103-931) 08/02/24 06:47
Patient Allergies
No Known Allergies Allergy (Unverified 08/01/24 11:37)
[2024-08-04] MEDS: SENOKOT 8.6 MG PO (21:00)
[2024-08-04] MEDS: COLACE 100 MG PO (21:01)
[2024-08-04] MEDS: GAMMAGARD 50 IV (21:25)
[2024-08-04] MEDS: GAMMAGARD 200 IV (22:30)
[2024-08-05] VITALS (11 sets, daily range): BP systolic 71–178; BP diastolic 30–110
[2024-08-05 07:04] LABS: Hematocrit 36.3 % (37.0-47.0); Hemoglobin 12.3 g/dL (12.0-16.0); Mean Corp Hgb Conc. 33.9 g/dL (33.0-37.0); Mean Corpuscular Hgb 30.6 pg (27.0-31.0); Mean Corpuscular Volume 90.3 fL (81.0-99.0); Mean Platelet Volume 10.3 fL (7.4-10.4); Platelet Count 183 10^3/uL (130-400); Red Blood Cell Count 4.02 10^6/uL (4.20-5.40); Red Cell Dist. Width 12.9 % (11.5-14.5); White Blood Cell Count 4.4 10^3/uL (4.8-10.8)
[2024-08-05] MEDS: VESICARE 10 MG PO (07:38)
[2024-08-05] MEDS: ZOLOFT 50 MG PO (07:38)
[2024-08-05] MEDS: COLACE 100 MG PO ×2 (07:38→21:00)
[2024-08-05] MEDS: MYRBETRIQ EXTENDED RELEASE 50 MG PO (07:38)
[2024-08-05] MEDS: COZAAR 50 MG PO (07:38)
[2024-08-05] MEDS: SINEMET 25-100 1.5 TABLET PO ×3 (07:39→21:31)
[2024-08-05] MEDS: TOPROL XL 50 MG PO (07:39)
[2024-08-05 07:54] LABS: Blood Urea Nitrogen 12 mg/dl (7-17); Calcium 9.7 mg/dl (8.4-10.2); Carbon Dioxide 27 mmol/L (22-30); Chloride 109 mmol/L (98-107); Estimated Creatinine Clearance 63 ml/min; Glucose 109 mg/dl (70-99); Potassium 3.6 mmol/L (3.5-5.1); Sodium 144 mmol/L (135-145); eGFR > 60.00
[2024-08-05] MEDS: OMNIPAQUE 50 ML PO (08:13)
--- NOTE | 2024-08-05 08:27 | W.PN.HOSP.TC ---
Addendum entered and electronically signed by Anu Snell MD 08/05/24 14:40:
I saw and evaluated the patient independently. I reviewed the resident�s note and agree with findings and plan as documented by Dr. Mcpherson.
GENERAL: well developed, well nourished, female in no apparent distress
HEENT: NC/AT
HEART: regular rate and rhythm, +S1, +S2
LUNGS : clear to auscultation bilaterally
ABDOM: soft, nontender, nondistended, + bowel sounds
EXT: no cyanosis, clubbing, or edema
NEUROLOGIC: grossly intact
Acute toxic metabolic encephalopathy--to me more like confusion/dementia--concern for NPH ruled out with low flow spinal tap and 8mls removed--apprec neuro-- UA negative, neg COVID- Afebrile-- Not on any sedating medication-- B12 level checked and
normal--neuro suspects encephalitis--viral, autoimmune, etc--IVIG ordered but pt now hypertensive--immunoglobulins stopped and IV hydralazine added
Nausea without vomiting - Improved-- As needed Zofran
Hypertensive urgency- Secondary to noncompliance to blood pressure medication- Continue home regimen of losartan/Toprol- As needed hydralazine for systolic blood pressure greater than 160
Overactive bladder-- Patient on Myrbetriq
Parkinson's disease- Patient follows up with [place] neurolog[facility]- Reported noncompliance to medication by daughter- Maintain on home dose of Sinemet 1 and half tablet 3 times daily
code status--Full code
dispo--apprec Dr. Araujo--appropriate for INPT rehab
Original Note:
Today's Communication/Plan
-
.
Assessment / Plan
Assessment / Plan
IMPRESSION:
73yo F h HTN, HLD, Parkinson's disease presented to [facility] ED for nausea, lightheadedness, and dizziness that worsens w head position change. Pt has not been taking her HTN meds and not taking her Parkinson's meds as often as she should. Hx
cognitive issues.
PLAN:
Metabolic encephalopathy
Hx of cognitive issues
- SIRS: leukopenia, tachycardia
- u/a: neg uti
- bcx x2: no growth at 72h
- CSF meningitis panel: neg for all
- CSF autoimmune/paraneoplastic antibodies: pending
- EEG: mild generalized cerebral dysfunction
- PT/OT - reevaluate s/p LP
- LP: drained 8 cc of fluid - not likely NPH
- start IVIG
- neuro input appreciated
Dizziness, nausea likely secondary to orthostatic HoTN
- improved
- orthostatic vitals - positive
- PT/OT - recommend acute rehab
- physiatry consulted - recommend acute rehab once cleared by neuro
Hypertensive urgency
- secondary to noncompliance to BP meds
- cont home toprol/losartan
- hydralazine for SBP>160
Elevated lipase
- possibly due to pancreatitis, though no epigastric tenderness on exam
- denies hx of pancreatitis
- monitor
Parkinson's
- neurologist Dr Pulido at [place]
- reported noncompliance
- cont home carbidopa-levodopa
HTN/HLD
- cont losartan
- cont metoprolol
- cont statin
Overactive bladder
- cont myrbetriq, solifenacin
Depression/Anxiety
- cont sertraline
Diet: regular
DVT ppx: lovenox
Code status: DNR
Anticipated Discharge: > 48 hours
Subjective/Interval History
-
Date of Service: August 05, 2024
Pt underwent LP yesterday. Drained 8 cc of fluid. Pt tolerated procedure well.
Objective Data
-
Labs:
Laboratory Results
08/05/24
06:24
WBC 4.4 L
Hgb 12.3
Hct 36.3 L
Plt Count 183
Sodium 144
Potassium 3.6
Chloride 109 H
Carbon Dioxide 27
BUN 12
Creatinine 0.7
Glucose 109 H
Calcium 9.7
Vital Signs:
Vital Signs
Temp Pulse Resp BP Pulse Ox
97.9 F 67 16 165/90 97
08/04/24 23:00 08/05/24 07:39 08/04/24 23:00 08/05/24 07:39 08/04/24 23:00
I&O
08/04/24 08/05/24 08/06/24
06:59 06:59 06:59
Intake Total 2140 / 2140 240 / 240
Balance 2140 / 2140 240 / 240
Review of Systems
-
Constitutional: Reports No Symptoms
Respiratory: Reports No Symptoms
Cardiac: Reports No Symptoms
Abdomen/GI: Reports No Symptoms
Neuro: Reports No Symptoms
Physical Exam
-
General: Well Developed and Well Nourished
HEENT: Normocephalic and Atraumatic
Respiratory: Clear to Auscultation and Non Labored Respirations
Cardiac: Regular Rhythm and S1/S2
GI: Soft, Nontender, Nondistended and Normal Bowel Sounds
Musculoskeletal: No Clubbing, No Cyanosis and No Edema
Neuro: Awake and Alert
Psych: Calm
--- NOTE | 2024-08-05 08:57 | CON.MD ---
Consultation - Medical
-
Date of Consult:�08/05/2024
Referring Provider:�Dr. Anu Snell
Chief Complaint:�Debility
�
History of Present Illness:�73-year-old female with PMH (as below) presented to [facility] on 08/01/2024 with nausea, lightheadedness, and dizziness. Of note patient not been taking her blood pressure or Parkinson's medications as she
should. Has some history of cognitive issues and chronic urinary incontinence. Was given IV fluid with improvement. Head CT: No acute intracranial abnormality. Nonspecific dilatation of the ventricles which may be chronic and related to central
volume loss with communicating hydrocephalus/normal pressure hydrocephalus also a consideration. Nonspecific mild periventricular white matter hypoattenuation, likely reflective of microvascular ischemic disease. Transependymal flow of CSF felt less
likely. Diagnosed with acute toxic metabolic encephalopathy. Also noted with hypertensive urgency with continued losartan and metoprolol. Seen by neurology with concern for normal pressure hydrocephalus. She had a lumbar puncture on 08/04/2024
with 8 cc of fluid and low pressure taking a long time to drain making a high volume drainage not practical per Dr. Jones. Per neurology NPH was ruled out. CSF with elevated glucose and protein. With approximately 1 week of memory loss, rapid
progression and development of hallucinations differential includes encephalitis with autoimmune more likely than viral etiology. Viral encephalitis PCR, autoimmune/paraneoplastic antibodies ordered. Patient started on IVIG with plan for CT of the
chest abdomen pelvis for cancer screening.
Overall patient says she feels okay. She notes that she was told that she now has Parkinson's disease. She denies any specific concerns. Denies any pain, trouble seeing, trouble swallowing, weakness, numbness or tingling.
�
Past Medical History:�HTN, HLD, Parkinson's disease
Procedure History:�None
Family History:�Denies
�
Social History:�
Functional Level Premorbidly:�Modified independent with all activities�using rolling walker
Functional Level Currently: Min assist transfers, min assist ambulating 10 feet with rolling walker with contact-guard. Min assist ambulating 25 feet x 2 without device.�
Tobacco:�Former smoker
Alcohol:�Denies�
Drug use:�Denies�
�
Lives with:�Spouse
24-hour assistance available:�Yes
Number of floors:�2
# steps to enter:�2
# steps to second floor: Full flight
Potential First floor set up:�Yes
Driving:�No
Occupation:�Retired
�
�
Allergies:�
Allergy/AdvReac Type Severity Reaction Status Date / Time
No Known Allergies Allergy Unverified 08/01/24 11:37
�
Review of Systems:�
Constitutional: (x) abNormal _Fatigue
Eye: (x) Normal _
Ear/Nose/Throat: (x) Normal _
Respiratory: (x) Normal _
Cardiovascular: (x) Normal _
Gastrointestinal: (x) Normal _
Genitourinary: (x) Normal _
Musculoskeletal: (x) abNormal _ difficulty with walking
Integumentary: (x) Normal _
Neurologic: (x) abNormal _ difficulty thinking
Psychiatric: (x) Normal _
Endocrine: (x) Normal _
Hematologic/Lymphatic: (x) Normal _
Allergic/Immunologic: (x) Normal _
�
Medications:�
Active Current Visit Medication List
Category Date Time Status
Acetaminophen [Tylenol] Med 08/02/24 21:46 Active
650 mg PO Q4HPRN PRN
Carbidopa/Levodopa [Sinemet 25-100] Med 08/01/24 22:00 Active
1.5 tablet PO TID
Docusate Sodium [Colace] Med 08/02/24 08:00 Active
100 mg PO BID
Enoxaparin Sodium [Lovenox] Med 08/01/24 18:31 Active
40 mg SC QPM
Flush (0.9% Sodium Chloride) [Flush (Nss)] Med 08/01/24 19:00 Active
See Dose Instructions IV PER PROTOCOL
HydrALAZINE [Apresoline] Med 08/02/24 10:18 Active
10 mg IV Q4HPRN PRN
Immune Globulin 20 Grams/200Ml [Gammagard] Med 08/05/24 13:00 Active
20 gram in 200 ml IV ONCE@1300
Immune Globulin 20 Grams/200Ml [Gammagard] Med 08/06/24 13:00 Active
20 gram in 200 ml IV ONCE@1300
Immune Globulin 20 Grams/200Ml [Gammagard] Med 08/07/24 13:00 Active
20 gram in 200 ml IV ONCE@1300
Immune Globulin 20 Grams/200Ml [Gammagard] Med 08/08/24 13:00 Active
20 gram in 200 ml IV ONCE@1300
Immune Globulin 5 Grams/50 ml [Gammagard] Med 08/05/24 12:00 Active
5 gram in 50 ml IV ONCE@1200
Immune Globulin 5 Grams/50 ml [Gammagard] Med 08/06/24 12:00 Active
5 gram in 50 ml IV ONCE@1200
Immune Globulin 5 Grams/50 ml [Gammagard] Med 08/07/24 12:00 Active
5 gram in 50 ml IV ONCE@1200
Immune Globulin 5 Grams/50 ml [Gammagard] Med 08/08/24 12:00 Active
5 gram in 50 ml IV ONCE@1200
Losartan [Cozaar] Med 08/02/24 08:00 Active
50 mg PO DAILY
Metoprolol Xl [Toprol Xl] Med 08/04/24 08:00 Active
50 mg PO DAILY
Mirabegron Extended Release [Myrbetriq Extended Release Med 08/02/24 08:00 Active
]
50 mg PO DAILY
Rosuvastatin Calcium [Crestor] Med 08/01/24 18:31 Active
40 mg PO QPM
Sennosides [Senokot] Med 08/02/24 22:00 Active
8.6 mg PO HS
Sertraline HCl [Zoloft] Med 08/02/24 08:00 Active
50 mg PO DAILY
Solifenacin Succinate [Vesicare] Med 08/02/24 08:00 Active
10 mg PO DAILY
�
Vitals:�
Temp Pulse Resp BP Pulse Ox
97.8 F 67 16 165/90 99
08/05/24 07:30 08/05/24 07:39 08/05/24 07:30 08/05/24 07:39 08/05/24 07:30
Height 5 ft 5 in
Actual Weight 62.142 kg
Body Mass Index (BMI) 22.8
�
Physical Exam:�
General Appearance/Observation: Well-developed, well-nourished female in no apparent distress.�
Pain/Comfort Assessment: Denies�
Mood/Affect: Appropriate�
�
Integumentary/Operative Site:�No lesions noted during course of exam
�
Eyes: Conjunctiva/Lids: normal��� Pupils: pupils equal round and reactive to light and Accommodation
Ears/Nose/Throat: oral mucosa moist, throat clear.������������ Lips/Teeth/Gums: normal
Cardiovascular: Heart: regular, no murmur�
Pulses: dorsalis pedis 2+ bilaterally�
Respiratory: Respiratory Effort/Chest Expansion: normal������ Auscultation: Clear to auscultation bilaterally
Gastrointestinal: abdomen not tender, no distension, normal abdominal bowel sounds�
Genitourinary: No Howell�
Rectal Exam: Deferred�
Extremities:�Edema: None�Cyanosis: None�Trophic�changes: None
�
Neurology Exam:
Orientation: Alert, Oriented to self
Memory: Impaired
Comprehension: Impaired
Two step command: Impaired
Cranial Nerves:
�� CNII:�Pupillary light reflex: Intact���Visual Field: Appear intact, some difficulty with command following
�� CN III, IV, : Extraocular muscles: Intact�
�� CN V:�Facial Sensation�at�Forehead: Intact,�Maxilla: Intact,�Mandible: Intact
�� CN VII:�Facial movement: Symmetric
�� CN VIII:�Hearing: Normal
�� CN IX/X:�Speech & swallow: Normal,�Position of Uvula: Midline
�� CN XI:�Shoulder shrug: Symmetric
�� CN XII:�Tongue protrusion: Midline
Sensory:
�� Light touch: Intact in bilateral upper and lower extremities
�
Reflexes:
�� Biceps: 2+ bilaterally
�� Brachioradialis: 2+ bilaterally
�� Triceps: 2+ bilaterally
�� Patellar: 2+ bilaterally
�� Achilles: 2+ bilaterally
�� Babinski: Down going bilaterally
�� Clonus: None
�� Raji: Negative bilaterally�
Musculoskeletal:Motor: (Manual muscle scale 0-5)�
Muscle SA EF WE EE FF FA HF KE DF EHL PF
Right� 5 5 5 5 5 4 5 5 5
Left 5 5 5 5 5 4 5 5 5
�
Tone: Normal in all extremities�
Range of Motion: Passively within functional limits in all extremities�
�
Lab Results
Laboratory Data
08/05/24 06:24
08/05/24 06:24
PT 13.7 Sec (11.4-14.6) 08/04/24 07:50
INR 1.00 08/04/24 07:50
Total Bilirubin 0.8 mg/dl (0.2-1.3) 08/02/24 06:47
AST 25 U/L (14-36) 08/02/24 06:47
ALT < 10 U/L (0-35) 08/02/24 06:47
Alkaline Phosphatase 38 U/L (38-126) 08/02/24 06:47
Total Protein 7.0 g/dl (6.3-8.2) 08/02/24 06:47
Albumin 4.4 g/dl (3.5-5.0) 08/02/24 06:47
�
Diagnostic Results:�as per HPI�
PROCEDURE: MR Brain Without Contrast
CLINICAL INDICATION: NPH
TECHNIQUE: Unenhanced MRI imaging of the brain was performed. Images were obtained in multiple planes using a variety of pulse sequences including T1 weighting, T2 weighting, FLAIR, and diffusion-weighted imaging.
COMPARISON: CT head 08/01/2024
FINDINGS:
Diffusion imaging shows no hyperacute, acute, or early subacute infarction.
Scattered and areas of confluent T2/FLAIR hyperintensities within the subcortical and periventricular white matter of the bilateral cerebral hemispheres which is nonspecific, however likely sequelae of moderate small vessel ischemic disease.
Moderate parenchymal volume loss.
There is no mass or mass effect, or extra-axial fluid collection.
There is prominence of the ventricular system which is likely due to adjacent central volume loss. The closest angle appears within normal limits at the level of the posterior commissure.
Flow voids of the larger intracranial vessels are present.
Paranasal sinuses and mastoid air cells are predominantly clear.
Marrow signal pattern is within normal limits.
IMPRESSION:
No acute intracranial abnormality noted.
Moderate atrophy with sequelae of moderate small vessel ischemic disease.
There is mild prominence of the ventricular system, however there are no additional findings suggestive of normal pressure hydrocephalus.
�
Assessment
73y/o F PMH (HTN, HLD, Parkinson's disease) with 08/01/2024 with N/V/dizziness and concern for encephalitis with autoimmune more likely than viral etiology per neurology -- causing ADL and ambulatory dysfunction
Plan�
PM&R�PT/OT to increase independence with ADLs, improve balance, coordination, endurance, strength, mobility, community reintegration, decreased burden of care on others and family education.�
Metabolic encephalopathy: With approximately 1 week of memory loss, rapid progression and development of hallucinations differential includes encephalitis with autoimmune more likely than viral etiology.
-Viral encephalitis PCR, autoimmune/paraneoplastic antibodies ordered by neurology.
-Patient started on IVIG with plan for CT of the chest abdomen pelvis for cancer screening per neurology.
-Significant cognitive dysfunction.
Parkinson's disease: continue Sinemet. PT/OT
HTN: losartan 50 mg daily and metoprolol XL 50 mg daily, monitor closely. Has hydralazine IV as needed, would suggest changing to p.o. if patient requires IV blood pressure medications this will might delay transfer to rehab.�
HLD: Statin�
Mild leukopenia:Continue to monitor.�
�
Psych:Monitor mood, medications as needed.�
Skin: monitor for pressure sores/rashes/lesions.�
Pain: acetaminophen as needed.�
Bowel: Colace and Senna, PRN bisacodyl.�
Bladder: Vesicare 10 mg daily and Myrbetriq 50 mg daily. Time void, PVRs, PRN straight cath.�
DVT Prophylaxis: mechanical and Lovenox
Pulmonary: Incentive spirometry�
Safety: Continue to reinforce assistance with all transfers.�
Code Status:� DNR�per chart
Dispo�(date/plan/equipment needs): Home with family care.� Social history reviewed.�
Functional and Medical Goals:�Supervision with ADL�s, ambulation, transfers�
Discharge Destination:�Anticipate acute inpatient rehabilitation once neurologic evaluation completed and patient is medically stable
�
Thank you for allowing me to care for your patient. Please contact me with any questions or concerns.
[2024-08-05] MEDS: GAMMAGARD 50 IV ×2 (12:30→17:20)
--- NOTE | 2024-08-05 12:45 | W.PN.NEURO.1 ---
Today's Communication / Plan
-
IVIG day 2. pause infusion for the headache, give NSS 500, tylenol 650, benadryl 25 and restart after headache is better
discussed with patient's dtr
Neuro Assessment/Plan
Assessment
Head CT img's rev'd agree central more than cortical atrophy
brain mri w/o contrast showing central atrophy, white matter changes, no other signs of NPH
NPH has been ruled out, no need for repeat tinetti
CSF WBC 1, glucose 76, protein 74,
with ~1 week of memory loss, rapidly progressing, and now hallucinations, no apparent acute medical illness to explain this, could be consistent with encephalitis, with autoimmune more likely than viral. will check CSF viral encephalitis PCR,
autoimmune/paraneoplastic antibodies,
CT chest/abd/pelvis cancer screen negative
IVIG day 2. pause infusion for the headache, give NSS 500, tylenol 650, benadryl 25 and restart after headache is better
also possible that this is just progression of dementia/Parkinsons with delirium if it doesn't respond to IVIG
Parkinson's continue Sinemet 1.5 tab TID
Plan
IVIG day 2. pause infusion for the headache, give NSS 500, tylenol 650, benadryl 25 and restart after headache is better
discussed with patient's dtr
Subjective/Objective
Subjective Data
Date of Service: August 05, 2024
tolerated IVIG last night
today started IVIG and got a headache
nonsensical speech
Objective Data
Vital Signs
Temp Pulse Resp BP Pulse Ox
36.6 C 72 16 112/68 99
08/05/24 07:30 08/05/24 12:35 08/05/24 07:30 08/05/24 12:35 08/05/24 07:30
Lab Results
08/05/24 06:24
08/05/24 06:24
PT 13.7 Sec (11.4-14.6) 08/04/24 07:50
INR 1.00 08/04/24 07:50
Sodium 144 mmol/L (135-145) 08/05/24 06:24
Potassium 3.6 mmol/L (3.5-5.1) 08/05/24 06:24
BUN 12 mg/dl (7-17) 08/05/24 06:24
Glucose 109 mg/dl (70-99) H 08/05/24 06:24
Calcium 9.7 mg/dl (8.4-10.2) 08/05/24 06:24
Vitamin B12 439 pg/ml (239-931) 08/02/24 06:47
Patient Allergies
No Known Allergies Allergy (Unverified 08/01/24 11:37)
--- NOTE | 2024-08-05 12:46 | EEG.RPT ---
Electroencephalogram Report
Recording
Date of EE08/05/24
Length of EEG recordin mins
Done with Video Recording: Yes
Patient Status: Inpatient
Recording Conditions: Awake
Hyperventilation Performed: No
Photic Stimulation Performed: Yes
Report
Clinical Background:�73 year old woman with suspected autoimmune encephalitis
Introduction: A routine bedside EEG was done using [employer] 10-20 electrode placement protocol.
Background: In the most alert state, there is continuous generalized polymorphic theta activity 5-6 Hz. There is spontaneous variability and reactivity.�
Sleep: No sleep is seen.�
Focal/epileptiform: There were no focal or epileptiform discharges. No clinical or electrographic seizures occurred during this recording.
Photic stimulation: resulted in no background change. There was no photo myogenic or photoparoxysmal response.�
Impression: Continuous generalized slowing
Clinical Correlation: mild generalized cerebral dysfunction
[2024-08-05] MEDS: NSS 500 IV ×2 (13:48→19:05)
[2024-08-05] MEDS: BENADRYL 25 MG IV (13:48)
--- NOTE | 2024-08-05 14:13 | PTCARENOTE ---
S patient was assessed 30 min after IVIG infusion per protocol, pt. reported terrible headache, Bp 150/110 hr 78.
B patient admitted with toxic metabolic encephalopathy
A see online database
R contacted Dr. Hughes and Dr. Snell made aware of patients symptoms, IV Benadryl ordered, 500ml bolus NS, stopped IVIG. Dr. Hughes states he will reorder IVIG for tonight.
--- NOTE | 2024-08-05 15:46 | CM ---
Patient seen at bedside with physicians on . Patient for several more days of treatment for IVIG per physician and PM&R consult pending. Patient would like to consider Acute Rehab as per therapy recommendations. CM will send referral to [facility]
and await assessment by PM&R. CM will continue to follow for discharge planning needs.
Plan; Acute Rehab; pending assessment
[2024-08-05] MEDS: CRESTOR 40 MG PO (16:43)
[2024-08-05] MEDS: LOVENOX 40 MG SC (16:44)
[2024-08-05] MEDS: TYLENOL 650 MG PO ×2 (16:48→21:31)
[2024-08-05] MEDS: BENADRYL 25 MG PO (16:49)
[2024-08-05] MEDS: APRESOLINE 10 MG IV (17:03)
[2024-08-05] MEDS: GAMMAGARD 200 IV (18:09)
[2024-08-05 19:10] LABS: Glucose - Point of Care 132 mg/dl (70-99)
--- NOTE | 2024-08-05 19:26 | W.PN.UPDATE ---
Update Note
Progress Note Update
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
-Patient is hypotensive 74/46 While receiving IVIG, hr 88. Afebrile, SPO2 90s RA. Also, patient received one dose of PRN IV hydralazine 10mg around 5 pm.
-Before BROKE WORKER called, nursing contacted neurology regarding BP and 500cc NSS bolus was ordered. Recheck bp after fluids is 123/72, HR 75.
-Discussed with the neurologist acid conditioning worker and will hold IVIG for now.
--- NOTE | 2024-08-05 19:36 | RR ---
A Rapid Response was called on this patient, please see Rapid Response form.
--- NOTE | 2024-08-05 19:36 | PTCARENOTE ---
During change of shift patient was found to be hypotensive 70s/40s......Provider and neurologist notified. During AM shift pt. was found to be hypertensive during IVIG infusion and was given PRN hydralazine as well as tylenol and benedryl. During
this time of hypertension, pt. was c/o IVERSON. Neurology aware. IVIG stopped at change of shift when pt. was found to be hypotensive and 500 cc NS bolus given per neurology order. Pts. last BP 123/72, HR 75. Pt. is resting comfortably at this time.
Placed on tele monitoring per order; found to be NSR on monitor, and IVIG dose DCed. Plan of care continues.
[2024-08-05] MEDS: SENOKOT 8.6 MG PO (21:31)
[2024-08-06] VITALS (12 sets, daily range): BP systolic 115–150; BP diastolic 56–90
[2024-08-06] MEDS: MOTRIN 200 MG PO (00:36)
[2024-08-06 06:30] LABS: Hematocrit 34.6 % (37.0-47.0); Hemoglobin 11.8 g/dL (12.0-16.0); Mean Corp Hgb Conc. 34.1 g/dL (33.0-37.0); Mean Corpuscular Hgb 30.4 pg (27.0-31.0); Mean Corpuscular Volume 89.2 fL (81.0-99.0); Mean Platelet Volume 10.6 fL (7.4-10.4); Platelet Count 200 10^3/uL (130-400); Red Blood Cell Count 3.88 10^6/uL (4.20-5.40); Red Cell Dist. Width 13.1 % (11.5-14.5)
[2024-08-06 07:00] LABS: Blood Urea Nitrogen 12 mg/dl (7-17); Calcium 9.7 mg/dl (8.4-10.2); Carbon Dioxide 24 mmol/L (22-30); Chloride 111 mmol/L (98-107); Estimated Creatinine Clearance 63 ml/min; Glucose 97 mg/dl (70-99); Potassium 3.6 mmol/L (3.5-5.1); Sodium 141 mmol/L (135-145); eGFR > 60.00
[2024-08-06] MEDS: MYRBETRIQ EXTENDED RELEASE 50 MG PO (07:15)
[2024-08-06] MEDS: COLACE 100 MG PO ×2 (07:15→20:12)
[2024-08-06] MEDS: VESICARE 10 MG PO (07:15)
[2024-08-06] MEDS: SINEMET 25-100 1.5 TABLET PO ×3 (07:15→21:17)
[2024-08-06] MEDS: COZAAR 50 MG PO (07:16)
[2024-08-06] MEDS: ZOLOFT 50 MG PO (07:16)
[2024-08-06] MEDS: TOPROL XL 50 MG PO (07:16)
--- NOTE | 2024-08-06 08:16 | W.PN.HOSP.TC ---
Addendum entered and electronically signed by Anu Snell MD 08/06/24 15:51:
I saw and evaluated the patient independently. I reviewed the resident�s note and agree with findings and plan as documented by Dr. Mcpherson.
GENERAL: well developed, well nourished, female in no apparent distress
HEENT: NC/AT
HEART: regular rate and rhythm, +S1, +S2
LUNGS : clear to auscultation bilaterally
ABDOM: soft, nontender, nondistended, + bowel sounds
EXT: no cyanosis, clubbing, or edema
NEUROLOGIC: grossly intact with apparent dementia
Acute toxic metabolic encephalopathy--to me more like confusion/dementia--concern for NPH ruled out with low flow spinal tap and 8mls removed--apprec neuro-- UA negative, CXR neg, COVID neg- Afebrile-- Not on any sedating medication-- B12 level
checked and normal--neuro suspects encephalitis--autoimmune, etc--IVIG ordered but pt had hypertensive episode, stopped, IVIG restarted then hypotensive episode--will try again but with standing IVF--benadryl pretreatment etc--updated daughter
[place] by phone--she told me Dr. Hughes called her too.
Nausea without vomiting - Improved-- As needed Zofran
Hypertensive urgency- Secondary to noncompliance to blood pressure medication- Continue home regimen of losartan/Toprol- As needed hydralazine for systolic blood pressure greater than 160
Overactive bladder-- Patient on Myrbetriq
Parkinson's disease- Patient follows up with [facility] neurology- Reported noncompliance to medication by daughter- Maintain on home dose of Sinemet 1 and half tablet 3 times daily
code status--Full code
dispo--apprec Dr. Araujo--appropriate for INPT rehab
Original Note:
Today's Communication/Plan
-
- IVF infusion w IVIG
- repeat MRI for abrupt change in mental status w IVIG infusion
Assessment / Plan
Assessment / Plan
IMPRESSION:
73yo F pmh HTN, HLD, Parkinson's disease presented to [facility] ED for nausea, lightheadedness, and dizziness that worsens w head position change. Pt has not been taking her HTN meds and not taking her Parkinson's meds as often as she should. Hx
cognitive issues.
PLAN:
Metabolic encephalopathy
Hx of cognitive issues
- SIRS: leukopenia, tachycardia
- u/a: neg uti
- bcx x2: no growth
- CSF meningitis panel: neg for all
- CSF autoimmune/paraneoplastic antibodies: pending
- EEG: mild generalized cerebral dysfunction
- MRI 08/03: No acute intracranial abnormality
- PT/OT - reevaluate s/p LP
- LP: drained 8 cc of fluid - not likely NPH
- start IVIG - HTN then HoTN w administration
- run IVF w IVIG administration
- repeat MRI for abrupt change in mental status w IVIG administration
- neuro input appreciated
Dizziness, nausea likely secondary to orthostatic HoTN
- improved
- orthostatic vitals - positive
- PT/OT - recommend acute rehab
- physiatry consulted - recommend acute rehab once cleared by neuro
Hypertensive urgency
- secondary to noncompliance to BP meds
- cont home toprol/losartan
- hydralazine for SBP>160
Elevated lipase
- possibly due to pancreatitis, though no epigastric tenderness on exam
- denies hx of pancreatitis
- monitor
Parkinson's
- neurologist Dr Pulido at [facility]
- reported noncompliance
- cont home carbidopa-levodopa
HTN/HLD
- cont losartan
- cont metoprolol
- cont statin
Overactive bladder
- cont myrbetriq, solifenacin
Depression/Anxiety
- cont sertraline
Diet: regular
DVT ppx: lovenox
Code status: DNR
Anticipated Discharge: > 48 hours
Subjective/Interval History
-
Date of Service: August 06, 2024
IVIG infused overnight, however pt became hypotensive 74/46. physical damage appraiser neurologist contacted, IVIG stopped and 500 cc bolus administered. Today, pt is lethargic and hallucinating.
Objective Data
-
Labs:
Laboratory Results
08/06/24
05:48
WBC 4.0 L
Hgb 11.8 L
Hct 34.6 L
Plt Count 200
Sodium 141
Potassium 3.6
Chloride 111 H
Carbon Dioxide 24
BUN 12
Creatinine 0.7
Glucose 97
Calcium 9.7
Vital Signs:
Vital Signs
Temp Pulse Resp BP Pulse Ox
97.5 F 81 14 136/77 98
08/06/24 07:20 08/06/24 07:16 08/05/24 23:00 08/06/24 07:16 08/06/24 07:20
I&O
08/05/24 08/06/24 08/07/24
06:59 06:59 06:59
Intake Total 240 / 240 980 / 980
Balance 240 / 240 980 / 980
Review of Systems
-
Unable to obtain full review of systems at this time due to: Acuity
History Source: Patient
Constitutional: Reports Chills
Respiratory: Reports No Symptoms
Cardiac: Reports No Symptoms
Abdomen/GI: Reports No Symptoms
Physical Exam
-
General: Well Developed and Well Nourished
HEENT: Normocephalic and Atraumatic
Respiratory: Clear to Auscultation
Cardiac: Regular Rhythm and S1/S2
GI: Soft, Nontender, Nondistended and Normal Bowel Sounds
Musculoskeletal: No Clubbing, No Cyanosis and No Edema
Skin: Warm and Dry
Neuro: Awake
Psych: Confused
--- NOTE | 2024-08-06 10:12 | W.PN.NEURO.1 ---
Today's Communication / Plan
-
IVIG day 3. premedicate NSS 500, tylenol 650, benadryl 25
infuse IVIG lowest rate instead of titrate
Neuro Assessment/Plan
Assessment
Head CT img's rev'd agree central more than cortical atrophy
brain mri w/o contrast showing central atrophy, white matter changes, no other signs of NPH
NPH has been ruled out, no need for repeat Tinetti
CSF WBC 1, glucose 76, protein 74,
with ~1 week of memory loss, rapidly progressing, and now hallucinations, no apparent acute medical illness to explain this, could be consistent with encephalitis, with autoimmune more likely than viral. will check CSF viral encephalitis PCR,
autoimmune/paraneoplastic antibodies,
CT chest/abd/pelvis cancer screen negative
IVIG day 3, pre medicate NSS 500, Tylenol 650, Benadryl 25 and restart after headache is better
also possible that this is just progression of dementia/Parkinson's with delirium if it doesn't respond to IVIG
Parkinson's continue Sinemet 1.5 tab TID
Plan
IVIG day 3. premedicate NSS 500, tylenol 650, benadryl 25
infuse IVIG lowest rate instead of titrate
Subjective/Objective
Subjective Data
Date of Service: August 06, 2024
last evening patient was given IVIG again, she became hypotensive 71/30, patient lethargic, but she was also given benadryl. She was given 500 cc saline bolus and BP normalized. night nurse reporting that overnight patient delirious, agitated, newly
incontient.
Objective Data
Vital Signs
Temp Pulse Resp BP Pulse Ox
36.4 C 81 14 136/77 98
08/06/24 07:20 08/06/24 07:16 08/05/24 23:00 08/06/24 07:16 08/06/24 07:20
Lab Results
08/06/24 05:48
05/21/25 05:48
PT 13.7 Sec (11.4-14.6) 08/04/24 07:50
INR 1.00 08/04/24 07:50
Sodium 141 mmol/L (135-145) 08/06/24 05:48
Potassium 3.6 mmol/L (3.5-5.1) 08/06/24 05:48
BUN 12 mg/dl (7-17) 08/06/24 05:48
Glucose 97 mg/dl (70-99) 08/06/24 05:48
Calcium 9.7 mg/dl (8.4-10.2) 08/06/24 05:48
Vitamin B12 439 pg/ml (239-931) 08/02/24 06:47
Patient Allergies
No Known Allergies Allergy (Unverified 08/01/24 11:37)
Physical Exam
-
Awake and alert, oriented x name/age only,
face symmetric
grossly full strength
bradykinesia, cogwheel rigidity
[2024-08-06] MEDS: NSS 500 IV (11:39)
[2024-08-06] MEDS: BENADRYL 25 MG PO (11:41)
[2024-08-06] MEDS: TYLENOL 650 MG PO (11:41)
[2024-08-06] MEDS: GAMMAGARD 50 IV (12:20)
[2024-08-06] MEDS: NSS 1000 IV (12:21)
[2024-08-06] MEDS: GAMMAGARD 200 IV (14:38)
--- NOTE | 2024-08-06 15:07 | CM ---
Patient seen at bedside with physicians on . CM reviewed with [facility] Liaison and she is following patient to assess if able to go to [facility] when medically appropriate. CM will continue to follow for discharge planning needs.
Plan; [facility]
--- NOTE | 2024-08-06 15:52 | PTOTSP ---
Speech Language Pathology
Pt seen for cognitive-linguistic evaluation. Pt with mod-severe cognitive deficits, mod-severe expressive aphasia, and mod-severe receptive aphasia. Oriented to being in hospital only. Not oriented to own name. Nodded 'yes' when asked wrong
name. Simple yes/no questions= 30% independently, cueing did not increase accuracy. Simple 1-step commands= 40% independently, 50% with mod cueing, 90% with max cueing (model). Frequent neologisms noted with poor communication skills. Asked 2
questions fluently during session, including 'Where's my ?'
Pt also seen for clinical bedside swallow evaluation. RN reported some coughing with P.O. intake and difficulty administering pills. P.O. trials of puree, regular solids, and thin liquids provided. Adequate mastication, bolus formation, and A-P
transit with no oral residue. Slight facial grimace with pt pointing mid esophagus stating she needed a drink. Question globus sensation. Brief cough x1, unsure if related to P.O. intake or not.
Recommend:
(1) VSE 08/07
(2) Continue regular solids/thin liquids
(3) Aspiration precautions: full supervision with assist as needed, ensure oral cavity clear post P.O. intake, slow rate, take break if coughing noted
(4) Meds as tolerated (currently best tolerated crushed in puree per RN). Cognition is largest barrier here
(5) TREASURY ASSISTANT to continue to follow for cognitive-linguistic and dysphagia tx
[2024-08-06] MEDS: LOVENOX 40 MG SC (16:11)
[2024-08-06] MEDS: CRESTOR 40 MG PO (16:11)
[2024-08-06] MEDS: SENOKOT 8.6 MG PO (21:18)
[2024-08-07] VITALS (13 sets, daily range): BP systolic 111–163; BP diastolic 62–90; PULSE 72; O2SAT 94–96
[2024-08-07] MEDS: NSS IV (00:58)
[2024-08-07 06:22] LABS: Hematocrit 34.3 % (37.0-47.0); Hemoglobin 11.9 g/dL (12.0-16.0); Mean Corp Hgb Conc. 34.7 g/dL (33.0-37.0); Mean Corpuscular Hgb 30.8 pg (27.0-31.0); Mean Corpuscular Volume 88.9 fL (81.0-99.0); Mean Platelet Volume 10.5 fL (7.4-10.4); Platelet Count 200 10^3/uL (130-400); Red Blood Cell Count 3.86 10^6/uL (4.20-5.40); Red Cell Dist. Width 13.2 % (11.5-14.5); White Blood Cell Count 4.7 10^3/uL (4.8-10.8)
[2024-08-07 06:50] LABS: Blood Urea Nitrogen 10 mg/dl (7-17); Calcium 9.4 mg/dl (8.4-10.2); Carbon Dioxide 28 mmol/L (22-30); Chloride 109 mmol/L (98-107); Estimated Creatinine Clearance 63 ml/min; Glucose 98 mg/dl (70-99); Potassium 3.6 mmol/L (3.5-5.1); Sodium 142 mmol/L (135-145); eGFR > 60.00
--- NOTE | 2024-08-07 07:49 | W.PN.HOSP.TC ---
Addendum entered and electronically signed by Anu Snell MD 08/07/24 12:54:
I saw and evaluated the patient independently. I reviewed the resident�s note and agree with findings and plan as documented by Dr. Mcpherson.
GENERAL: well developed, well nourished, female in no apparent distress
HEENT: NC/AT
HEART: regular rate and rhythm, +S1, +S2
LUNGS : clear to auscultation bilaterally
ABDOM: soft, nontender, nondistended, + bowel sounds
EXT: no cyanosis, clubbing, or edema
NEUROLOGIC: grossly intact with apparent dementia
Acute toxic metabolic encephalopathy--to me more like confusion/dementia--concern for NPH ruled out with low flow spinal tap and 8mls removed--apprec neuro-- UA negative, CXR neg, COVID neg- Afebrile-- Not on any sedating medication-- B12 level
checked and normal--neuro suspects encephalitis--autoimmune, etc--IVIG ordered but pt had hypertensive episode, stopped, IVIG restarted then hypotensive episode--did well with premed of tylenol, benadryl and IVF maintenance----updated daughter
Concepción by phone 08/06 and Ashlee at bedside 08/07
Nausea without vomiting - Improved-- As needed Zofran
Hypertensive urgency- Secondary to noncompliance to blood pressure medication- Continue home regimen of losartan/Toprol- As needed hydralazine for systolic blood pressure greater than 160
Overactive bladder-- Patient on Myrbetriq
Parkinson's disease- Patient follows up with [facility] neurology- Reported noncompliance to medication by daughter- Maintain on home dose of Sinemet 1 and half tablet 3 times daily
code status--Full code
dispo--apprec Dr. Araujo--appropriate for INPT rehab
Original Note:
Today's Communication/Plan
-
- IVF infusion w IVIG administration
Assessment / Plan
Assessment / Plan
IMPRESSION:
73yo F pmh HTN, HLD, Parkinson's disease presented to [facility] ED for nausea, lightheadedness, and dizziness that worsens w head position change. Pt has not been taking her HTN meds and not taking her Parkinson's meds as often as she should. Hx
cognitive issues.
PLAN:
Metabolic encephalopathy
Hx of cognitive issues
- SIRS: leukopenia, tachycardia
- u/a: neg uti
- bcx x2: no growth
- CSF meningitis panel: neg for all
- CSF autoimmune/paraneoplastic antibodies: pending
- EEG: mild generalized cerebral dysfunction
- MRI 08/03: No acute intracranial abnormality
- PT/OT - reevaluate s/p LP
- LP: drained 8 cc of fluid - not likely NPH
- start IVIG - HTN then HoTN w administration
- run IVF w IVIG administration
- repeat MRI for abrupt change in mental status w IVIG administration: no acute intracranial abnormalities
- neuro input appreciated
Dizziness, nausea likely secondary to orthostatic HoTN
- improved
- orthostatic vitals - positive
- PT/OT - recommend acute rehab
- physiatry consulted - recommend acute rehab once cleared by neuro
Hypertensive urgency
- secondary to noncompliance to BP meds
- cont home toprol/losartan
- hydralazine for SBP>160
Elevated lipase
- possibly due to pancreatitis, though no epigastric tenderness on exam
- denies hx of pancreatitis
- monitor
Parkinson's
- neurologist Dr Pulido at [facility]
- reported noncompliance
- cont home carbidopa-levodopa
HTN/HLD
- cont losartan
- cont metoprolol
- cont statin
Overactive bladder
- cont myrbetriq, solifenacin
Depression/Anxiety
- cont sertraline
Diet: regular
DVT ppx: lovenox
Code status: DNR
Anticipated Discharge: 24 - 48 hours
Subjective/Interval History
-
Date of Service: August 07, 2024
No acute overnight events. Tolerated IVIG well yesterday. Pt still confused this morning. Denies visual/audio hallucinations. Pt sitting on side of bed w chills. She remains afebrile. Pt wishes to go home and feels as if no one is communicating her
care to her.
Objective Data
-
Labs:
Laboratory Results
08/07/24
05:37
WBC 4.7 L
Hgb 11.9 L
Hct 34.3 L
Plt Count 200
Sodium 142
Potassium 3.6
Chloride 109 H
Carbon Dioxide 28
BUN 10
Creatinine 0.7
Glucose 98
Calcium 9.4
Vital Signs:
Vital Signs
Temp Pulse Resp BP Pulse Ox
98.1 F 70 16 120/83 89
08/06/24 23:41 08/06/24 23:41 08/06/24 23:41 08/06/24 23:41 08/06/24 23:41
I&O
08/06/24 08/07/24 08/08/24
06:59 06:59 06:59
Intake Total 980 / 980 360 / 360
Balance 980 / 980 360 / 360
Review of Systems
-
History Source: Patient
Constitutional: Reports Chills
Respiratory: Reports No Symptoms
Cardiac: Reports No Symptoms
Abdomen/GI: Reports No Symptoms
Musculoskeletal: Reports No Symptoms
Neuro: Reports No Symptoms
Physical Exam
-
General: Well Developed, Well Nourished and Chills
HEENT: Normocephalic and Atraumatic
Respiratory: Clear to Auscultation
Cardiac: Regular Rhythm and S1/S2
GI: Soft, Nontender, Nondistended and Normal Bowel Sounds
Musculoskeletal: No Clubbing, No Cyanosis and No Edema
Skin: Warm, Dry and IV Access / Catheter Site
Neuro: Awake
Psych: Confused
[2024-08-07] MEDS: COLACE 100 MG PO ×2 (08:11→21:35)
[2024-08-07] MEDS: MYRBETRIQ EXTENDED RELEASE 50 MG PO (08:12)
[2024-08-07] MEDS: COZAAR 50 MG PO (08:12)
[2024-08-07] MEDS: SINEMET 25-100 1.5 TABLET PO ×3 (08:12→21:36)
[2024-08-07] MEDS: VESICARE 10 MG PO (08:13)
[2024-08-07] MEDS: ZOLOFT 50 MG PO (08:13)
[2024-08-07] MEDS: TOPROL XL 50 MG PO (08:13)
--- NOTE | 2024-08-07 09:20 | PTOTSP ---
Speech Language Pathology
VIDEOFLUOROSCOPIC SWALLOWING EXAMINATION (VSE) completed. Significantly improved mentation and verbal expression noted this date compared to 08/06. Mild oral dysphagia. Pharyngeal phase of swallow WFL. No penetration/aspiration or any significant
pharyngeal residue noted.
Recommend:
(1) Continue regular solids/thin liquids
(2) Aspiration precautions: intermittent supervision, sit upright
(3) Meds as tolerated
(4) LIFE ENRICHMENT SPECIALIST to continue to follow
[2024-08-07] MEDS: NSS 500 IV (11:29)
[2024-08-07] MEDS: TYLENOL 650 MG PO (12:15)
[2024-08-07] MEDS: BENADRYL 25 MG PO (12:16)
[2024-08-07] MEDS: GAMMAGARD 50 IV (12:58)
--- NOTE | 2024-08-07 13:31 | CM ---
Addendum entered by Tiffanie Gloria 08/07/24 13:43:
CM updated patient daughter about [facility] transfer- [facility].
Original Note:
Patient seen at bedside with physician on . Patient daughter present and requested that her father who has Alzheimer's be taken off of the contact list as he is confused. Patient daughter happy about transfer to [facility]; tentatively planned for
Sunday per Liaison with [facility]. CM will review IMM with patient daughter and continue to follow for discharge planning needs.
Plan; [facility] tentatively pending physician assessment Sunday.
[2024-08-07] MEDS: GAMMAGARD 200 IV (14:47)
[2024-08-07] MEDS: NSS 1000 IV (15:05)
--- NOTE | 2024-08-07 16:55 | PTCARENOTE ---
IVIG: BP 113/62 HR 74 at start of infusion. 34.7ml left to infuse - BP 163/[address]. [address] Snell notified and IV hydralazine administered. Dr Snell stated okay to finish infusion when BP normalizes.
[2024-08-07] MEDS: APRESOLINE 5 MG IV (16:58)
[2024-08-07] MEDS: CRESTOR 40 MG PO (16:59)
[2024-08-07] MEDS: LOVENOX 40 MG SC (16:59)
[2024-08-07 17:37] LABS: Paraneoplastic Ab IgG, CSF None Detected (None Detected)
[2024-08-07] MEDS: SENOKOT 8.6 MG PO (21:35)
[2024-08-08] VITALS (11 sets, daily range): BP systolic 115–186; BP diastolic 63–97; PULSE 74–84; O2SAT 98
[2024-08-08] MEDS: NSS IV ×2 (05:16→17:53)
[2024-08-08 06:24] LABS: Hematocrit 32.6 % (37.0-47.0); Hemoglobin 11.2 g/dL (12.0-16.0); Mean Corp Hgb Conc. 34.4 g/dL (33.0-37.0); Mean Corpuscular Hgb 30.9 pg (27.0-31.0); Mean Corpuscular Volume 89.8 fL (81.0-99.0); Mean Platelet Volume 10.6 fL (7.4-10.4); Platelet Count 188 10^3/uL (130-400); Red Blood Cell Count 3.63 10^6/uL (4.20-5.40); Red Cell Dist. Width 13.2 % (11.5-14.5); White Blood Cell Count 3.5 10^3/uL (4.8-10.8)
[2024-08-08 06:54] LABS: Blood Urea Nitrogen 14 mg/dl (7-17); Calcium 9.5 mg/dl (8.4-10.2); Carbon Dioxide 26 mmol/L (22-30); Chloride 110 mmol/L (98-107); Estimated Creatinine Clearance 63 ml/min; Glucose 111 mg/dl (70-99); Potassium 3.5 mmol/L (3.5-5.1); Sodium 141 mmol/L (135-145); eGFR > 60.00
--- NOTE | 2024-08-08 07:32 | W.PN.HOSP.TC ---
Addendum entered and electronically signed by Anu Snell MD 08/08/24 11:58:
I saw and evaluated the patient independently. I reviewed the resident�s note and agree with findings and plan as documented by Dr. Mcpherson.
GENERAL: well developed, well nourished, female in no apparent distress
HEENT: NC/AT
HEART: regular rate and rhythm, +S1, +S2
LUNGS : clear to auscultation bilaterally
ABDOM: soft, nontender, nondistended, + bowel sounds
EXT: no cyanosis, clubbing, or edema
NEUROLOGIC: grossly intact with apparent dementia
Acute toxic metabolic encephalopathy--to me more like confusion/dementia--concern for NPH ruled out with low flow spinal tap and 8mls removed--apprec neuro-- UA negative, CXR neg, COVID neg- Afebrile-- Not on any sedating medication-- B12 level
checked and normal--neuro suspects encephalitis--autoimmune, etc--IVIG ordered but pt had hypertensive episode, stopped, IVIG restarted then hypotensive episode--did well with premed of tylenol, benadryl and IVF maintenance----updated daughter
Concepción by phone 08/06 and Ashlee at bedside 08/07, 08/08--last dose of IVIG today
Nausea without vomiting - Improved-- As needed Zofran
Hypertensive urgency- Secondary to noncompliance to blood pressure medication- Continue home regimen of losartan/Toprol- As needed hydralazine for systolic blood pressure greater than 160
Overactive bladder-- Patient on Myrbetriq
Parkinson's disease- Patient follows up with [facility] neurology- Reported noncompliance to medication by daughter- Maintain on home dose of Sinemet 1 and half tablet 3 times daily
code status--Full code
dispo--apprec Dr. Araujo--appropriate for INPT rehab
Original Note:
Today's Communication/Plan
-
- cont IVIG
- dc planning to [facility]
Assessment / Plan
Assessment / Plan
IMPRESSION:
73yo F [facility] HTN, HLD, Parkinson's disease presented to [facility] ED for nausea, lightheadedness, and dizziness that worsens w head position change. Pt has not been taking her HTN meds and not taking her Parkinson's meds as often as she should. Hx
cognitive issues.
PLAN:
Metabolic encephalopathy
Hx of cognitive issues
- SIRS: leukopenia, tachycardia
- u/a: neg uti
- bcx x2: no growth
- CSF meningitis panel: neg for all
- CSF autoimmune/paraneoplastic antibodies: pending
- EEG: mild generalized cerebral dysfunction
- MRI 08/03: No acute intracranial abnormality
- PT/OT - reevaluate s/p LP
- LP: drained 8 cc of fluid - not likely NPH
- start IVIG - HTN then HoTN w administration
- run IVF w IVIG administration
- repeat MRI for abrupt change in mental status w IVIG administration: no acute intracranial abnormalities
- neuro input appreciated
Dizziness, nausea likely secondary to orthostatic HoTN
- improved
- orthostatic vitals - positive
- PT/OT - recommend acute rehab
- physiatry consulted - recommend acute rehab once cleared by neuro
Hypertensive urgency
- secondary to noncompliance to BP meds
- cont home toprol/losartan
- hydralazine for SBP>160
Elevated lipase
- possibly due to pancreatitis, though no epigastric tenderness on exam
- denies hx of pancreatitis
- monitor
Parkinson's
- neurologist Dr Pulido at [facility]
- reported noncompliance
- cont home carbidopa-levodopa
HTN/HLD
- cont losartan
- cont metoprolol
- cont statin
Overactive bladder
- cont myrbetriq, solifenacin
Depression/Anxiety
- cont sertraline
Diet: regular
DVT ppx: lovenox
Code status: DNR
Anticipated Discharge: Within 24 hours
Subjective/Interval History
-
Date of Service: August 08, 2024
Hypertensive during IVIG infusion yesterday. Infusion stopped, hydralazine administered, and infusion restarted. Pt still confused and trying to find a place to hide from people.
Objective Data
-
Labs:
Laboratory Results
08/08/24
05:57
WBC 3.5 L
Hgb 11.2 L
Hct 32.6 L
Plt Count 188
Sodium 141
Potassium 3.5
Chloride 110 H
Carbon Dioxide 26
BUN 14
Creatinine 0.7
Glucose 111 H
Calcium 9.5
Vital Signs:
Vital Signs
Temp Pulse Resp BP Pulse Ox
98.4 F 75 17 115/63 95
08/08/24 00:26 08/08/24 00:26 08/08/24 00:26 08/08/24 00:26 08/08/24 00:26
I&O
08/07/24 08/08/24 08/09/24
06:59 06:59 06:59
Intake Total 360 / 360 490 / 490
Balance 360 / 360 490 / 490
Review of Systems
-
History Source: Patient
Constitutional: Reports Chills
Respiratory: Reports No Symptoms
Cardiac: Reports No Symptoms
Abdomen/GI: Reports No Symptoms
Musculoskeletal: Reports No Symptoms
Skin: Reports No Symptoms
Neuro: Reports No Symptoms
Physical Exam
-
General: Well Developed, Well Nourished and Chills
HEENT: Normocephalic, Atraumatic and Moist Mucous Membranes
Respiratory: Clear to Auscultation and Non Labored Respirations
Cardiac: Regular Rhythm and S1/S2
GI: Soft, Nontender, Nondistended and Normal Bowel Sounds
Musculoskeletal: No Clubbing, No Cyanosis and No Edema
Skin: Warm and Dry
Neuro: Awake
Psych: Confused
[2024-08-08] MEDS: MYRBETRIQ EXTENDED RELEASE 50 MG PO (08:32)
[2024-08-08] MEDS: VESICARE 10 MG PO (08:32)
[2024-08-08] MEDS: TOPROL XL 50 MG PO (08:33)
[2024-08-08] MEDS: COLACE 100 MG PO ×2 (08:33→19:54)
[2024-08-08] MEDS: SINEMET 25-100 1.5 TABLET PO ×3 (08:33→21:12)
[2024-08-08] MEDS: COZAAR 50 MG PO (08:33)
[2024-08-08] MEDS: ZOLOFT 50 MG PO (08:33)
--- NOTE | 2024-08-08 09:20 | CM ---
Addendum entered by Nirmala Harris 08/08/24 16:11:
IF Auth gets approved tomorrow - CALL DEVIKA FROM [facility] [phone]
Original Note:
Spoke with Britt from [facility] - bed available tomorrow Sat 08/09
tt hospitalist
Authorization initiated for request of [facility] - Faxed form & clinical information to [phone]
AILYN NPI # [id number]
DR. KING NPI #: [id number]
PLAN: [facility] once authorization is approved
Report #: [id number]
Fax #: [phone]
[2024-08-08] MEDS: GAMMAGARD 50 IV (12:07)
[2024-08-08] MEDS: GAMMAGARD 200 IV (13:32)
--- NOTE | 2024-08-08 17:11 | W.PN.NEURO.1 ---
Today's Communication / Plan
-
IVIG day 5 tonight
Neuro Assessment/Plan
Assessment
Head CT img's rev'd agree central more than cortical atrophy
brain mri w/o contrast showing central atrophy, white matter changes, no other signs of NPH
NPH has been ruled out, no need for repeat [place]
CSF WBC 1, glucose 76, protein 74,
with ~1 week of memory loss, rapidly progressing, and now hallucinations, no apparent acute medical illness to explain this, could be consistent with encephalitis, with autoimmune more likely than viral. will check CSF viral encephalitis PCR,
autoimmune/paraneoplastic antibodies,
CT chest/abd/pelvis cancer screen negative
IVIG day 5, pre medicate NSS 500, Tylenol 650, Benadryl 25 and restart after headache is better
also possible that this is just progression of dementia/Parkinson's with delirium if it doesn't respond to IVIG
Parkinson's continue Sinemet 1.5 tab TID
Plan
IVIG day 5. premedicate NSS 500, tylenol 650, benadryl 25
infuse IVIG lowest rate instead of titrate
Subjective/Objective
Subjective Data
Date of Service: August 08, 2024
last evening tolerated IVIG well
will complete IVIG tonight
does not seem to have responded
Objective Data
Vital Signs
Temp Pulse Resp BP Pulse Ox
37.2 C 73 16 142/75 100
08/08/24 12:15 08/08/24 14:20 08/08/24 12:15 08/08/24 14:20 08/08/24 12:15
Lab Results
08/08/24 05:57
08/08/24 05:57
PT 13.7 Sec (11.4-14.6) 08/04/24 07:50
INR 1.00 08/04/24 07:50
Sodium 141 mmol/L (135-145) 08/08/24 05:57
Potassium 3.5 mmol/L (3.5-5.1) 08/08/24 05:57
BUN 14 mg/dl (7-17) 08/08/24 05:57
Glucose 111 mg/dl (70-99) H 08/08/24 05:57
Calcium 9.5 mg/dl (8.4-10.2) 08/08/24 05:57
Vitamin B12 439 pg/ml (239-931) 08/02/24 06:47
Patient Allergies
No Known Allergies Allergy (Unverified 08/01/24 11:37)
Physical Exam
-
Awake and alert, disoriented, does not know age/month
face symmetric
grossly full strength
bradykinesia, cogwheel rigidity
[2024-08-08] MEDS: LOVENOX 40 MG SC (17:17)
[2024-08-08] MEDS: CRESTOR 40 MG PO (17:18)
[2024-08-08] MEDS: SENOKOT 8.6 MG PO (21:12)
[2024-08-09 07:00] VITALS: BP 157/78
--- NOTE | 2024-08-09 07:48 | W.PN.HOSP.TC ---
Addendum entered and electronically signed by Anu Snell MD 08/09/24 14:08:
I saw and evaluated the patient independently. I reviewed the resident�s note and agree with findings and plan as documented by Dr. Mcpherson.
GENERAL: well developed, well nourished, female in no apparent distress
HEENT: NC/AT
HEART: regular rate and rhythm, +S1, +S2
LUNGS : clear to auscultation bilaterally
ABDOM: soft, nontender, nondistended, + bowel sounds
EXT: no cyanosis, clubbing, or edema
NEUROLOGIC: grossly intact with apparent dementia
Acute toxic metabolic encephalopathy--to me more like confusion/dementia--concern for NPH ruled out with low flow spinal tap and 8mls removed--apprec neuro-- UA negative, CXR neg, COVID neg- Afebrile-- Not on any sedating medication-- B12 level
checked and normal--neuro suspects encephalitis--autoimmune, etc--IVIG ordered but pt had hypertensive episode, stopped, IVIG restarted then hypotensive episode--did well with premed of tylenol, benadryl and IVF maintenance----updated daughter
Concepción by phone 08/06 and Ashlee at bedside 08/07, 08/08--finished IVIG--medically stable for d/c to [facility]
Nausea without vomiting - Improved
Hypertensive urgency- Secondary to noncompliance to blood pressure medication- Continue home regimen of losartan/Toprol- As needed hydralazine for systolic blood pressure greater than 160
Overactive bladder-- Patient on Myrbetriq
Parkinson's disease- Patient follows up with [place] neurology- Reported noncompliance to medication by daughter- Maintain on home dose of Sinemet 1 and half tablet 3 times daily
code status--Full code
dispo--apprec Dr. Araujo--appropriate for INPT rehab
Original Note:
Today's Communication/Plan
-
- dc to [facility]
Assessment / Plan
Assessment / Plan
IMPRESSION:
73yo F pmh HTN, HLD, Parkinson's disease presented to [facility] ED for nausea, lightheadedness, and dizziness that worsens w head position change. Pt has not been taking her HTN meds and not taking her Parkinson's meds as often as she should. Hx
cognitive issues.
PLAN:
Metabolic encephalopathy
Hx of cognitive issues
- SIRS: leukopenia, tachycardia
- u/a: neg uti
- bcx x2: no growth
- CSF meningitis panel: neg for all
- CSF autoimmune/paraneoplastic antibodies: pending
- EEG: mild generalized cerebral dysfunction
- MRI 08/03: No acute intracranial abnormality
- PT/OT - reevaluate s/p LP
- LP: drained 8 cc of fluid - not likely NPH
- start IVIG - HTN then HoTN w administration
- run IVF w IVIG administration
- finished five days of IVIG
- repeat MRI for abrupt change in mental status w IVIG administration: no acute intracranial abnormalities
- neuro input appreciated
Dizziness, nausea likely secondary to orthostatic HoTN
- improved
- orthostatic vitals - positive
- PT/OT - recommend acute rehab
- physiatry consulted - recommend acute rehab once cleared by neuro
Hypertensive urgency
- secondary to noncompliance to BP meds
- cont home toprol/losartan
- hydralazine for SBP>160
Elevated lipase
- possibly due to pancreatitis, though no epigastric tenderness on exam
- denies hx of pancreatitis
- monitor
Parkinson's
- neurologist Dr Pulido at [place]
- reported noncompliance
- cont home carbidopa-levodopa
HTN/HLD
- cont losartan
- cont metoprolol
- cont statin
Overactive bladder
- cont myrbetriq, solifenacin
Depression/Anxiety
- cont sertraline
Diet: regular
DVT ppx: lovenox
Code status: DNR
Anticipated Discharge: Today
Subjective/Interval History
-
Date of Service: August 09, 2024
Finished day 5 of IVIG yesterday. Tolerated infusion well. Pt denies concerns at this time
Objective Data
-
Labs:
Laboratory Results
08/09/24
07:02
WBC Pending
Hgb Pending
Hct Pending
Plt Count Pending
Sodium Pending
Potassium Pending
Chloride Pending
Carbon Dioxide Pending
BUN Pending
Creatinine Pending
Glucose Pending
Calcium Pending
Vital Signs:
Vital Signs
Temp Pulse Resp BP Pulse Ox
98.8 F 70 20 143/69 96
08/08/24 23:00 08/08/24 23:00 08/08/24 23:00 08/08/24 23:00 08/08/24 23:00
I&O
08/08/24 08/09/24 08/10/24
06:59 06:59 06:59
Intake Total 490 / 490
Balance 490 / 490
Review of Systems
-
History Source: Patient
Constitutional: Reports No Symptoms
Respiratory: Reports No Symptoms
Cardiac: Reports No Symptoms
Abdomen/GI: Reports No Symptoms
Musculoskeletal: Reports No Symptoms
Neuro: Reports No Symptoms
Physical Exam
-
General: Well Developed and Well Nourished
HEENT: Normocephalic and Atraumatic
Respiratory: Clear to Auscultation and Non Labored Respirations
Cardiac: Regular Rhythm and S1/S2
GI: Soft, Nontender, Nondistended and Normal Bowel Sounds
Musculoskeletal: No Clubbing, No Cyanosis and No Edema
Skin: Warm and Dry
Neuro: Awake and Alert
Psych: Calm
[2024-08-09] MEDS: ZOLOFT 50 MG PO (07:49)
[2024-08-09] MEDS: SINEMET 25-100 1.5 TABLET PO ×3 (07:49→20:19)
[2024-08-09] MEDS: MYRBETRIQ EXTENDED RELEASE 50 MG PO (07:49)
[2024-08-09] MEDS: NSS IV (07:49)
[2024-08-09] MEDS: VESICARE 10 MG PO (07:49)
[2024-08-09] MEDS: COZAAR 50 MG PO (07:49)
[2024-08-09] MEDS: TOPROL XL 50 MG PO (07:50)
[2024-08-09] MEDS: COLACE 100 MG PO ×2 (07:50→20:20)
[2024-08-09 08:36] LABS: Hematocrit 31.2 % (37.0-47.0); Hemoglobin 10.5 g/dL (12.0-16.0); Mean Corp Hgb Conc. 33.7 g/dL (33.0-37.0); Mean Corpuscular Hgb 30.5 pg (27.0-31.0); Mean Corpuscular Volume 90.7 fL (81.0-99.0); Mean Platelet Volume 11.1 fL (7.4-10.4); Platelet Count 184 10^3/uL (130-400); Red Blood Cell Count 3.44 10^6/uL (4.20-5.40); Red Cell Dist. Width 13.3 % (11.5-14.5); White Blood Cell Count 2.9 10^3/uL (4.8-10.8)
[2024-08-09 08:51] LABS: Blood Urea Nitrogen 13 mg/dl (7-17); Calcium 9.2 mg/dl (8.4-10.2); Carbon Dioxide 29 mmol/L (22-30); Chloride 108 mmol/L (98-107); Estimated Creatinine Clearance 74 ml/min; Glucose 103 mg/dl (70-99); Potassium 3.7 mmol/L (3.5-5.1); Sodium 140 mmol/L (135-145); eGFR > 60.00
--- NOTE | 2024-08-09 13:47 | W.DCSUMMARY ---
Addendum entered and electronically signed by Anu Snell MD 08/13/24 17:07:
Read, reviewed, and agree. See same day progress note for additional details. Time spent coordinating care, DC planning, review of DC plan of care with resident, transition of care, review of records in EMR, med rec, consults, notes, d/w
consultants, nursing, family, and CM = 28 minutes
Addendum entered and electronically signed by Raina Mcpherson DO, Resident 08/13/24 12:08:
Pt actually discharged today, 08/13/2024. Delay in discharge due to waiting on insurance authorization.
Addendum entered and electronically signed by Anu Snell MD 08/10/24 06:58:
Read, reviewed, and agree. See same day progress note for additional details. Time spent coordinating care, DC planning, review of DC plan of care with resident, transition of care, review of records in EMR, med rec, consults, notes, d/w
consultants, nursing, family, and CM = 32 minutes
Original Note:
Discharge Summary
Discharge Data
Date of Admission: 08/01/24
Date of Discharge: 08/09/24
-
Pending Results: No
Hospital Course
Discharging Physician : Dr. Raina Mcpherson, Dr. Anu Snell
Disposition : acute rehab
Primary care physician : Swapnil Stevens
Principal Discharge diagnosis : Metabolic encephalopathy, hypertensive urgency
Chronic Discharge diagnosis : HTN, HLD, Parkinson's disease
Hospital Course : 73yo F h HTN, HLD, Parkinson's disease presented to [facility] ED for nausea, lightheadedness, and dizziness that worsens w head position change. Pt has not been taking her HTN meds and not taking her Parkinson's meds as often as she
should. Hx cognitive issues. CT head/MRI brain neg for acute intracranial abnormalities, though concern of NPH. UA negative, neg COVID. Afebrile. Neurology consulted, recommended LP. LP drained 8 cc fluid; csf analysis positive for elevated glucose
and protein. CSF panel neg, autoimmune neg. Started on a 5-day regimen of IVIG. During the first dose, she developed hypertensive urgency and received benadryl, hydralazine, tylenol and 500 cc fluid bolus. IVIG resumed later the same day and pt
developed HoTN and fluid bolus was ordered. The following morning, pt developed abrupt change in mental status. Repeat MRI shows no acute abnormalities. Speech/swallow study showed no evidence of aspiration. The remaining days of IVIG, pt was
premedicated w benadryl, 500 cc bolus, tylenol and received IVF infusion during IVIG administration. Evaluated by PT/OT and physiatry, recommend acute rehab. Hemodynamically stable, afebrile, tolerated 5 days of IVIG.
Important imaging findings :
Head CT 08/01:
No acute intracranial abnormality.
Nonspecific dilatation of the ventricles which may be chronic and related to central volume loss with communicating hydrocephalus/normal pressure hydrocephalus also a consideration.
Nonspecific mild periventricular white matter hypoattenuation, likely reflective of microvascular ischemic disease. Transependymal flow of CSF felt less likely.
CXR 08/02: No acute cardiopulmonary abnormality.
Brain MRI 08/03:
No acute intracranial abnormality noted.
Moderate atrophy with sequelae of moderate small vessel ischemic disease.
There is mild prominence of the ventricular system, however there are no additional findings suggestive of normal pressure hydrocephalus.
CT CAP 08/05:
No suspicious mass or significant lymphadenopathy, evaluation of majority of the large bowel limited without oral contrast opacification.
Coronary artery calcifications.
Simple hepatic cysts as well as additional subcentimeter low-attenuation right lobe hepatic lesion too small to characterize.
Simple right renal cyst.
Cholelithiasis.
Brain MRI 08/06: No acute intracranial abnormality.
Procedure findings :
LP 08/04:
1. Technically successful fluoroscopically guided lumbar puncture.
2. Fluid was at low pressure, and drained very slowly. Approximately 8 mL of fluid was drained.
Discharge Plan
-
Patient Disposition: Acute Rehab Facility
Discharge Diagnosis/Procedures: Metabolic encephalopathy, hypertensive urgency
Condition: Fair
Diet: No restrictions
Activity: With assistance and As tolerated
Driving Restrictions: No driving
Bathing Restrictions: None
Other Services: PT and OT
Instructions: Parkinson disease, Toxic-metabolic encephalopathy
Referrals:
Tavo Hughes MD [Active] - in one month
Swapnil Stevens DO [Family Provider] - in one week
Prescriptions:
Continued
sertraline 50 mg Tablet
50 mg PO DAILY
losartan 50 mg Tablet
50 mg PO DAILY
metoprolol succinate [Toprol XL] 25 mg Tablet Extended Release 24 Hr
25 mg PO DAILY
carbidopa-levodopa 25-100 mg Tablet
1.5 tab PO TID
rosuvastatin [Crestor] 40 mg Tablet
40 mg PO QPM
solifenacin [Vesicare] 10 mg Tablet
10 mg PO DAILY
mirabegron [Myrbetriq] 50 mg Tablet Extended Release 24 Hr
50 mg PO DAILY
Discharge Orders:
Discharge Patient (As Directed); Ordered 08/09/24
Ordered By: Raina Mcpherson
Discharge Date and Time
Print Language: AZERBAIJANI
[2024-08-09 15:00] VITALS: BP 161/85
--- NOTE | 2024-08-09 15:51 | CM ---
Cm following to coordinate transfer to [facility]. Insurance authorization is still pending.
Await [employer] response to request for Acute Rehab transfer.
[2024-08-09] MEDS: CRESTOR 40 MG PO (17:17)
[2024-08-09] MEDS: LOVENOX 40 MG SC (17:17)
[2024-08-09 18:22] VITALS: BP 145/73
[2024-08-09] MEDS: SENOKOT 8.6 MG PO (20:20)
[2024-08-09 23:32] VITALS: BP 138/77
[2024-08-10 06:47] LABS: Hemoglobin 9.9 g/dL (12.0-16.0); Mean Corp Hgb Conc. 34.1 g/dL (33.0-37.0); Mean Corpuscular Hgb 30.7 pg (27.0-31.0); Mean Corpuscular Volume 90.1 fL (81.0-99.0); Mean Platelet Volume 10.9 fL (7.4-10.4); Platelet Count 182 10^3/uL (130-400); Red Blood Cell Count 3.22 10^6/uL (4.20-5.40); Red Cell Dist. Width 13.4 % (11.5-14.5)
[2024-08-10 07:00] VITALS: BP 151/88
--- NOTE | 2024-08-10 07:11 | W.PN.HOSP.TC ---
Addendum entered and electronically signed by Anu Snell MD 08/10/24 14:07:
I saw and evaluated the patient independently. I reviewed the resident�s note and agree with findings and plan as documented by Dr. Mcpherson.
GENERAL: well developed, well nourished, female in no apparent distress
HEENT: NC/AT
HEART: regular rate and rhythm, +S1, +S2
LUNGS : clear to auscultation bilaterally
ABDOM: soft, nontender, nondistended, + bowel sounds
EXT: no cyanosis, clubbing, or edema
NEUROLOGIC: grossly intact with apparent dementia
Acute toxic metabolic encephalopathy--to me more like confusion/dementia--concern for NPH ruled out with low flow spinal tap and 8mls removed--apprec neuro-- UA negative, CXR neg, COVID neg- Afebrile-- Not on any sedating medication-- B12 level
checked and normal--neuro suspects encephalitis--autoimmune, etc--IVIG ordered but pt had hypertensive episode, stopped, IVIG restarted then hypotensive episode--did well with premed of tylenol, benadryl and IVF maintenance----updated daughter
Concepción by phone 08/06 and Ashlee at bedside 08/07, 08/08, 08/10--finished IVIG--medically stable for d/c to [place] since Sunday--waiting for insurance auth
Nausea without vomiting - Improved
Hypertensive urgency- Secondary to noncompliance to blood pressure medication- Continue home regimen of losartan/Toprol- As needed hydralazine for systolic blood pressure greater than 160
Overactive bladder-- Patient on Myrbetriq
Parkinson's disease- Patient follows up with [facility] [place] [facility]- Reported noncompliance to medication by daughter- Maintain on home dose of Sinemet 1 and half tablet 3 times daily
code status--Full code
dispo--apprec Dr. Araujo--appropriate for INPT rehab
Original Note:
Today's Communication/Plan
-
- dc planning, await insurance auth
Assessment / Plan
Assessment / Plan
IMPRESSION:
73yo F [facility] HTN, HLD, Parkinson's disease presented to [facility] ED for nausea, lightheadedness, and dizziness that worsens w head position change. Pt has not been taking her HTN meds and not taking her Parkinson's meds as often as she should. Hx
cognitive issues.
PLAN:
Metabolic encephalopathy
Hx of cognitive issues
- SIRS: leukopenia, tachycardia
- u/a: neg uti
- bcx x2: no growth
- CSF meningitis panel: neg for all
- CSF autoimmune/paraneoplastic antibodies: pending
- EEG: mild generalized cerebral dysfunction
- MRI 08/03: No acute intracranial abnormality
- PT/OT - reevaluate s/p LP
- LP: drained 8 cc of fluid - not likely NPH
- start IVIG - HTN then HoTN w administration
- run IVF w IVIG administration
- finished five days of IVIG
- repeat MRI for abrupt change in mental status w IVIG administration: no acute intracranial abnormalities
- neuro input appreciated
Dizziness, nausea likely secondary to orthostatic HoTN
- improved
- orthostatic vitals - positive
- PT/OT - recommend acute rehab
- physiatry consulted - recommend acute rehab once cleared by neuro
Hypertensive urgency
- secondary to noncompliance to BP meds
- cont home toprol/losartan
- hydralazine for SBP>160
Elevated lipase
- possibly due to pancreatitis, though no epigastric tenderness on exam
- denies hx of pancreatitis
- monitor
Parkinson's
- neurologist Dr Pulido at [facility]
- reported noncompliance
- cont home carbidopa-levodopa
HTN/HLD
- cont losartan
- cont metoprolol
- cont statin
Overactive bladder
- cont myrbetriq, solifenacin
Depression/Anxiety
- cont sertraline
Diet: regular
DVT ppx: lovenox
Code status: DNR
Anticipated Discharge: Within 24 hours
Subjective/Interval History
-
Date of Service: August 10, 2024
No acute overnight events. Awaiting insurance authorization
Objective Data
-
Labs:
Laboratory Results
08/10/24
06:29
WBC 3.0 L
Hgb 9.9 L
Hct 29.0 L
Plt Count 182
Sodium Pending
Potassium Pending
Chloride Pending
Carbon Dioxide Pending
BUN Pending
Creatinine Pending
Glucose Pending
Calcium Pending
Vital Signs:
Vital Signs
Temp Pulse Resp BP Pulse Ox
98.5 F 72 18 138/77 98
08/09/24 23:32 08/09/24 23:32 08/09/24 23:32 08/09/24 23:32 08/09/24 23:32
I&O
08/09/24 08/10/24 08/11/24
06:59 06:59 06:59
Intake Total 1200 / 1200
Balance 1200 / 1200
Review of Systems
-
History Source: Patient
Constitutional: Reports No Symptoms
Respiratory: Reports No Symptoms
Cardiac: Reports No Symptoms
Abdomen/GI: Reports No Symptoms
Musculoskeletal: Reports No Symptoms
Neuro: Reports No Symptoms
Physical Exam
-
General: Well Developed, Well Nourished and Conversant
HEENT: Normocephalic and Atraumatic
Respiratory: Clear to Auscultation and Non Labored Respirations
Cardiac: Regular Rhythm and S1/S2
GI: Soft, Nontender, Nondistended and Normal Bowel Sounds
Musculoskeletal: No Clubbing, No Cyanosis and No Edema
Skin: Warm and Dry
Neuro: Awake and Alert
Psych: Calm
[2024-08-10] MEDS: SINEMET 25-100 1.5 TABLET PO ×3 (07:18→21:12)
[2024-08-10] MEDS: MYRBETRIQ EXTENDED RELEASE 50 MG PO (07:19)
[2024-08-10] MEDS: TOPROL XL 50 MG PO (07:19)
[2024-08-10] MEDS: COZAAR 50 MG PO (07:19)
[2024-08-10] MEDS: COLACE 100 MG PO ×2 (07:19→21:12)
[2024-08-10] MEDS: ZOLOFT 50 MG PO (07:19)
[2024-08-10 07:21] LABS: Blood Urea Nitrogen 14 mg/dl (7-17); Calcium 9.2 mg/dl (8.4-10.2); Carbon Dioxide 29 mmol/L (22-30); Chloride 109 mmol/L (98-107); Estimated Creatinine Clearance 74 ml/min; Glucose 111 mg/dl (70-99); Potassium 3.7 mmol/L (3.5-5.1); Sodium 142 mmol/L (135-145); eGFR > 60.00
[2024-08-10] MEDS: VESICARE 10 MG PO (07:42)
--- NOTE | 2024-08-10 09:05 | CM ---
NAKUL called [employer]; Provider Services . Office is closed today.
NURYS MOTA, faxed clinical information to #[phone] on 08/08
PLAN: [facility] pending authorization approval
Report #: [phone]
Fax #: [phone]
[2024-08-10 10:30] VITALS: BP 104/70; PULSE 80; O2SAT 97
[2024-08-10 16:07] VITALS: BP 127/80
[2024-08-10] MEDS: LOVENOX 40 MG SC (17:07)
[2024-08-10] MEDS: CRESTOR 40 MG PO (17:07)
[2024-08-10] MEDS: SENOKOT 8.6 MG PO (21:12)
[2024-08-10 23:00] VITALS: BP 118/64
[2024-08-11 07:00] VITALS: BP 166/88
--- NOTE | 2024-08-11 07:14 | W.PN.HOSP.TC ---
Addendum entered and electronically signed by Anu Snell MD 08/11/24 16:11:
I saw and evaluated the patient independently. I reviewed the resident�s note and agree with findings and plan as documented by Dr. Mcpherson.
GENERAL: well developed, well nourished, female in no apparent distress
HEENT: NC/AT
HEART: regular rate and rhythm, +S1, +S2
LUNGS : clear to auscultation bilaterally
ABDOM: soft, nontender, nondistended, + bowel sounds
EXT: no cyanosis, clubbing, or edema
NEUROLOGIC: grossly intact with apparent dementia
Acute toxic metabolic encephalopathy--to me more like confusion/dementia--concern for NPH ruled out with low flow spinal tap and 8mls removed--apprec neuro-- UA negative, CXR neg, COVID neg- Afebrile-- Not on any sedating medication-- B12 level
checked and normal--neuro suspects encephalitis--autoimmune, etc--IVIG ordered but pt had hypertensive episode, stopped, IVIG restarted then hypotensive episode--did well with premed of tylenol, benadryl and IVF maintenance----updated daughter
Concepción by phone 08/06 and Ashlee at bedside 08/07, 08/08, 08/10--finished IVIG--medically stable for d/c to [place] since Sunday--waiting for insurance auth
Nausea without vomiting - Improved
Hypertensive urgency- Secondary to noncompliance to blood pressure medication- Continue home regimen of losartan/Toprol- As needed hydralazine for systolic blood pressure greater than 160
Overactive bladder-- Patient on Myrbetriq
Parkinson's disease- Patient follows up with [place] [facility]- Reported noncompliance to medication by daughter- Maintain on home dose of Sinemet 1 and half tablet 3 times daily
code status--Full code
dispo--apprec Dr. Araujo--appropriate for INPT rehab
Original Note:
Today's Communication/Plan
-
- dispo planning - [facility] pending authorization approval
Assessment / Plan
Assessment / Plan
IMPRESSION:
73yo F [facility] HTN, HLD, Parkinson's disease presented to [facility] ED for nausea, lightheadedness, and dizziness that worsens w head position change. Pt has not been taking her HTN meds and not taking her Parkinson's meds as often as she should. Hx
cognitive issues.
PLAN:
Metabolic encephalopathy
Hx of cognitive issues
- SIRS: leukopenia, tachycardia
- u/a: neg uti
- bcx x2: no growth
- CSF meningitis panel: neg for all
- CSF autoimmune/paraneoplastic antibodies: pending
- EEG: mild generalized cerebral dysfunction
- MRI 08/03: No acute intracranial abnormality
- PT/OT - reevaluate s/p LP
- LP: drained 8 cc of fluid - not likely NPH
- start IVIG - HTN then HoTN w administration
- run IVF w IVIG administration
- finished five days of IVIG
- repeat MRI for abrupt change in mental status w IVIG administration: no acute intracranial abnormalities
- neuro input appreciated
Dizziness, nausea likely secondary to orthostatic HoTN
- improved
- orthostatic vitals - positive
- PT/OT - recommend acute rehab
- physiatry consulted - recommend acute rehab once cleared by neuro
Hypertensive urgency
- secondary to noncompliance to BP meds
- cont home toprol/losartan
- hydralazine for SBP>160
Elevated lipase
- possibly due to pancreatitis, though no epigastric tenderness on exam
- denies hx of pancreatitis
- monitor
Parkinson's
- neurologist Dr Pulido at [facility]
- reported noncompliance
- cont home carbidopa-levodopa
HTN/HLD
- cont losartan
- cont metoprolol
- cont statin
Overactive bladder
- cont myrbetriq, solifenacin
Depression/Anxiety
- cont sertraline
Diet: regular
DVT ppx: lovenox
Code status: DNR
Anticipated Discharge: Within 24 hours
Subjective/Interval History
-
Date of Service: August 11, 2024
No acute overnight events
Objective Data
-
Vital Signs:
Vital Signs
Temp Pulse Resp BP Pulse Ox
97.7 F 65 16 118/64 97
08/10/24 23:00 08/10/24 23:00 08/10/24 23:00 08/10/24 23:00 08/10/24 23:00
I&O
08/10/24 08/11/24 08/12/24
06:59 06:59 06:59
Intake Total 1200 / 1200 660 / 660
Balance 1200 / 1200 660 / 660
Review of Systems
-
History Source: Patient
Constitutional: Reports No Symptoms
Respiratory: Reports No Symptoms
Cardiac: Reports No Symptoms
Abdomen/GI: Reports No Symptoms
Neuro: Reports No Symptoms
Physical Exam
-
General: Well Developed and Well Nourished
HEENT: Normocephalic and Atraumatic
Respiratory: Clear to Auscultation and Non Labored Respirations
Cardiac: Regular Rhythm and S1/S2
GI: Soft, Nontender, Nondistended and Normal Bowel Sounds
Musculoskeletal: No Clubbing, No Cyanosis and No Edema
Neuro: Awake and Alert
[2024-08-11] MEDS: SINEMET 25-100 1.5 TABLET PO ×3 (08:43→21:03)
[2024-08-11] MEDS: MYRBETRIQ EXTENDED RELEASE 50 MG PO (08:43)
[2024-08-11] MEDS: TOPROL XL 50 MG PO (08:44)
[2024-08-11] MEDS: COLACE 100 MG PO ×2 (08:45→21:03)
[2024-08-11] MEDS: VESICARE 10 MG PO (08:45)
[2024-08-11] MEDS: ZOLOFT 50 MG PO (08:45)
[2024-08-11] MEDS: COZAAR 50 MG PO (08:45)
--- NOTE | 2024-08-11 14:07 | PTCARENOTE ---
patient denies complaints, tolerating diet, transfer with min assist x1 with rolling walker to br, vss, will continue to monitor.
[2024-08-11 15:00] VITALS: BP 116/57
[2024-08-11] MEDS: CRESTOR 40 MG PO (17:08)
[2024-08-11] MEDS: LOVENOX 40 MG SC (17:09)
[2024-08-11] MEDS: SENOKOT 8.6 MG PO (21:03)
[2024-08-11 23:05] VITALS: BP 113/53
[2024-08-12 06:31] LABS: Hematocrit 28.1 % (37.0-47.0); Hemoglobin 9.7 g/dL (12.0-16.0); Mean Corp Hgb Conc. 34.5 g/dL (33.0-37.0); Mean Corpuscular Hgb 31.2 pg (27.0-31.0); Mean Corpuscular Volume 90.4 fL (81.0-99.0); Mean Platelet Volume 10.7 fL (7.4-10.4); Platelet Count 223 10^3/uL (130-400); Red Blood Cell Count 3.11 10^6/uL (4.20-5.40); Red Cell Dist. Width 13.3 % (11.5-14.5); White Blood Cell Count 3.4 10^3/uL (4.8-10.8)
[2024-08-12 06:48] LABS: Blood Urea Nitrogen 15 mg/dl (7-17); Calcium 9.4 mg/dl (8.4-10.2); Carbon Dioxide 28 mmol/L (22-30); Chloride 108 mmol/L (98-107); Estimated Creatinine Clearance 63 ml/min; Glucose 109 mg/dl (70-99); Potassium 3.9 mmol/L (3.5-5.1); Sodium 141 mmol/L (135-145); eGFR > 60.00
[2024-08-12 07:30] VITALS: BP 120/73
--- NOTE | 2024-08-12 07:55 | W.PN.HOSP.TC ---
Addendum entered and electronically signed by Anu Snell MD 08/12/24 16:49:
ERROR: insurance NOT obtained yet....
Addendum entered and electronically signed by Anu Snell MD 08/12/24 16:48:
I saw and evaluated the patient independently. I reviewed the resident�s note and agree with findings and plan as documented by Dr. Mcpherson.
GENERAL: well developed, well nourished, female in no apparent distress
HEENT: NC/AT
HEART: regular rate and rhythm, +S1, +S2
LUNGS : clear to auscultation bilaterally
ABDOM: soft, nontender, nondistended, + bowel sounds
EXT: no cyanosis, clubbing, or edema
NEUROLOGIC: grossly intact with apparent dementia
Acute toxic metabolic encephalopathy--to me more like confusion/dementia--concern for NPH ruled out with low flow spinal tap and 8mls removed--apprec neuro-- UA negative, CXR neg, COVID neg- Afebrile-- Not on any sedating medication-- B12 level
checked and normal--neuro suspects encephalitis--autoimmune, etc--IVIG ordered but pt had hypertensive episode, stopped, IVIG restarted then hypotensive episode--did well with premed of tylenol, benadryl and IVF maintenance----updated daughter
Concepción by phone 08/06 and Ashlee at bedside 08/07, 08/08, 08/10--finished IVIG--medically stable for d/c to [place] since Sunday- insurance auth obtained-OK for d/c
Nausea without vomiting - Improved
Hypertensive urgency- Secondary to noncompliance to blood pressure medication- Continue home regimen of losartan/Toprol- As needed hydralazine for systolic blood pressure greater than 160
Overactive bladder-- Patient on Myrbetriq
Parkinson's disease- Patient follows up with [facility]- Reported noncompliance to medication by daughter- Maintain on home dose of Sinemet 1 and half tablet 3 times daily
code status--Full code
dispo--apprec Dr. Araujo--appropriate for INPT rehab
Original Note:
Today's Communication/Plan
-
- dc planning
Assessment / Plan
Assessment / Plan
IMPRESSION:
73yo F [facility] HTN, HLD, Parkinson's disease presented to [facility] ED for nausea, lightheadedness, and dizziness that worsens w head position change. Pt has not been taking her HTN meds and not taking her Parkinson's meds as often as she should. Hx
cognitive issues.
PLAN:
Metabolic encephalopathy
Hx of cognitive issues
- SIRS: leukopenia, tachycardia
- u/a: neg uti
- bcx x2: no growth
- CSF meningitis panel: neg for all
- CSF autoimmune/paraneoplastic antibodies: pending
- EEG: mild generalized cerebral dysfunction
- MRI 08/03: No acute intracranial abnormality
- PT/OT - reevaluate s/p LP
- LP: drained 8 cc of fluid - not likely NPH
- start IVIG - HTN then HoTN w administration
- run IVF w IVIG administration
- finished five days of IVIG
- repeat MRI for abrupt change in mental status w IVIG administration: no acute intracranial abnormalities
- neuro input appreciated
Dizziness, nausea likely secondary to orthostatic HoTN
- improved
- orthostatic vitals - positive
- PT/OT - recommend acute rehab
- physiatry consulted - recommend acute rehab once cleared by neuro
Hypertensive urgency
- secondary to noncompliance to BP meds
- cont home toprol/losartan
- hydralazine for SBP>160
Elevated lipase
- possibly due to pancreatitis, though no epigastric tenderness on exam
- denies hx of pancreatitis
- monitor
Parkinson's
- neurologist Dr Pulido at [facility]
- reported noncompliance
- cont home carbidopa-levodopa
HTN/HLD
- cont losartan
- cont metoprolol
- cont statin
Overactive bladder
- cont myrbetriq, solifenacin
Depression/Anxiety
- cont sertraline
Diet: regular
DVT ppx: lovenox
Code status: DNR
Anticipated Discharge: Today
Subjective/Interval History
-
Date of Service: August 12, 2024
No acute overnight events
Objective Data
-
Labs:
Laboratory Results
08/12/24
05:53
WBC 3.4 L
Hgb 9.7 L
Hct 28.1 L
Plt Count 223 D
Sodium 141
Potassium 3.9
Chloride 108 H
Carbon Dioxide 28
BUN 15
Creatinine 0.7
Glucose 109 H
Calcium 9.4
Vital Signs:
Vital Signs
Temp Pulse Resp BP Pulse Ox
98.6 F 63 18 113/53 100
08/11/24 23:05 08/11/24 23:05 08/11/24 23:05 08/11/24 23:05 08/11/24 23:05
I&O
08/11/24 08/12/24 08/13/24
06:59 06:59 06:59
Intake Total 660 / 660 1200 / 1200
Balance 660 / 660 1200 / 1200
Review of Systems
-
History Source: Patient
Constitutional: Reports No Symptoms
Respiratory: Reports No Symptoms
Cardiac: Reports No Symptoms
Abdomen/GI: Reports No Symptoms
Neuro: Reports No Symptoms
Physical Exam
-
General: Well Developed and Well Nourished
HEENT: Normocephalic and Atraumatic
Respiratory: Clear to Auscultation and Non Labored Respirations
Cardiac: Regular Rhythm and S1/S2
GI: Soft, Nontender, Nondistended and Normal Bowel Sounds
Musculoskeletal: No Clubbing, No Cyanosis and No Edema
Skin: Warm and Dry
Neuro: Awake, Alert and Oriented
Psych: Calm
[2024-08-12] MEDS: MYRBETRIQ EXTENDED RELEASE 50 MG PO (08:03)
[2024-08-12] MEDS: ZOLOFT 50 MG PO (08:04)
[2024-08-12] MEDS: TOPROL XL 50 MG PO (08:04)
[2024-08-12] MEDS: COZAAR 50 MG PO (08:04)
[2024-08-12] MEDS: SINEMET 25-100 1.5 TABLET PO ×3 (08:04→21:12)
[2024-08-12] MEDS: COLACE 100 MG PO ×2 (08:04→21:13)
[2024-08-12] MEDS: VESICARE 10 MG PO (08:06)
--- NOTE | 2024-08-12 11:08 | CM ---
Addendum entered by Tiffanie Gloria 08/12/24 11:35:
CM called [employer]; Provider Services / [phone].
NURYS MOTA, faxed clinical information to #[phone] on 08/08
PLAN: [facility] pending authorization approval
Report #: [phone]
Fax #: [phone]
Addendum entered by Tiffanie Gloria 08/12/24 11:34:
per insurance pending UR number is [id number]
Original Note:
NAKUL called to insurance again to request auth confirmation. VM left all clinicals sent 08/08/24. CM confirmed with [facility] available pending auth.
Plan; [facility] pending auth
[2024-08-12 15:45] VITALS: BP 140/75
--- NOTE | 2024-08-12 16:52 | CM ---
Return call from Julia Bueno [facility] , regarding pended Acute Rehab Auth. Acute Rehab Auths are automatically sent to the [employer] Director. She stated it is currently still pending. She said she will call me back first think in the morning with
a determination. She said that they were closed on Sunday as well as yesterday, and therefore are processing the request today. Update to .
[2024-08-12] MEDS: LOVENOX 40 MG SC (17:09)
[2024-08-12] MEDS: CRESTOR 40 MG PO (17:09)
[2024-08-12] MEDS: SENOKOT 8.6 MG PO (21:12)
--- NOTE | 2024-08-12 21:22 | PTCARENOTE ---
patient was offered oral care, but refused. She prefers to do it in the morning
[2024-08-12 23:00] VITALS: BP 141/75
[2024-08-13 07:30] VITALS: BP 143/84
[2024-08-13] MEDS: VESICARE 10 MG PO (08:08)
[2024-08-13] MEDS: MYRBETRIQ EXTENDED RELEASE 50 MG PO (08:08)
[2024-08-13] MEDS: TOPROL XL 50 MG PO (08:08)
[2024-08-13] MEDS: COZAAR 50 MG PO (08:08)
[2024-08-13] MEDS: COLACE 100 MG PO (08:08)
[2024-08-13] MEDS: SINEMET 25-100 1.5 TABLET PO (08:08)
--- NOTE | 2024-08-13 08:08 | W.PN.HOSP.TC ---
Addendum entered and electronically signed by Anu Snell MD 08/13/24 17:06:
I saw and evaluated the patient independently. I reviewed the resident�s note and agree with findings and plan as documented by Dr. Mcpherson.
GENERAL: well developed, well nourished, female in no apparent distress
HEENT: NC/AT
HEART: regular rate and rhythm, +S1, +S2
LUNGS : clear to auscultation bilaterally
ABDOM: soft, nontender, nondistended, + bowel sounds
EXT: no cyanosis, clubbing, or edema
NEUROLOGIC: grossly intact with apparent dementia
Acute toxic metabolic encephalopathy--to me more like confusion/dementia--concern for NPH ruled out with low flow spinal tap and 8mls removed--apprec neuro-- UA negative, CXR neg, COVID neg- Afebrile-- Not on any sedating medication-- B12 level
checked and normal--neuro suspects encephalitis--autoimmune, etc--IVIG ordered but pt had hypertensive episode, stopped, IVIG restarted then hypotensive episode--did well with premed of tylenol, benadryl and IVF maintenance----updated daughter
Concepción by phone 08/06 and Ashlee at bedside 08/07, 08/08, 08/10--finished IVIG--medically stable for d/c to [place] since Sunday- insurance auth obtained-OK for d/c
Nausea without vomiting - Improved
Hypertensive urgency- Secondary to noncompliance to blood pressure medication- Continue home regimen of losartan/Toprol- As needed hydralazine for systolic blood pressure greater than 160
Overactive bladder-- Patient on Myrbetriq
Parkinson's disease- Patient follows up with [facility]- Reported noncompliance to medication by daughter- Maintain on home dose of Sinemet 1 and half tablet 3 times daily
code status--Full code
dispo--apprec Dr. Araujo--appropriate for INPT rehab
Original Note:
Today's Communication/Plan
-
- dc today to [place]
Assessment / Plan
Assessment / Plan
IMPRESSION:
73yo F [facility] HTN, HLD, Parkinson's disease presented to [facility] ED for nausea, lightheadedness, and dizziness that worsens w head position change. Pt has not been taking her HTN meds and not taking her Parkinson's meds as often as she should. Hx
cognitive issues.
PLAN:
Metabolic encephalopathy
Hx of cognitive issues
- SIRS: leukopenia, tachycardia
- u/a: neg uti
- bcx x2: no growth
- CSF meningitis panel: neg for all
- CSF autoimmune/paraneoplastic antibodies: pending
- EEG: mild generalized cerebral dysfunction
- MRI 08/03: No acute intracranial abnormality
- PT/OT - reevaluate s/p LP
- LP: drained 8 cc of fluid - not likely NPH
- start IVIG - HTN then HoTN w administration
- run IVF w IVIG administration
- finished five days of IVIG
- repeat MRI for abrupt change in mental status w IVIG administration: no acute intracranial abnormalities
- neuro input appreciated
Dizziness, nausea likely secondary to orthostatic HoTN
- improved
- orthostatic vitals - positive
- PT/OT - recommend acute rehab
- physiatry consulted - recommend acute rehab once cleared by neuro
Hypertensive urgency
- secondary to noncompliance to BP meds
- cont home toprol/losartan
- hydralazine for SBP>160
Elevated lipase
- possibly due to pancreatitis, though no epigastric tenderness on exam
- denies hx of pancreatitis
- monitor
Parkinson's
- neurologist Dr Pulido at [facility]
- reported noncompliance
- cont home carbidopa-levodopa
HTN/HLD
- cont losartan
- cont metoprolol
- cont statin
Overactive bladder
- cont myrbetriq, solifenacin
Depression/Anxiety
- cont sertraline
Diet: regular
DVT ppx: lovenox
Code status: DNR
Anticipated Discharge: Today
Subjective/Interval History
-
Date of Service: August 13, 2024
No acute overnight events.
Objective Data
-
Vital Signs:
Vital Signs
Temp Pulse Resp BP Pulse Ox
98.3 F 73 17 143/84 98
08/13/24 07:30 08/13/24 07:30 08/13/24 07:30 08/13/24 07:30 08/13/24 07:30
I&O
08/12/24 08/13/24 08/14/24
06:59 06:59 06:59
Intake Total 1200 / 1200 600 / 600
Balance 1200 / 1200 600 / 600
Review of Systems
-
History Source: Patient
Constitutional: Reports No Symptoms
Respiratory: Reports No Symptoms
Cardiac: Reports No Symptoms
Abdomen/GI: Reports No Symptoms
Musculoskeletal: Reports No Symptoms
Neuro: Reports No Symptoms
Physical Exam
-
General: Well Developed and Well Nourished
HEENT: Normocephalic and Atraumatic
Respiratory: Clear to Auscultation and Non Labored Respirations
Cardiac: Regular Rhythm and S1/S2
GI: Soft, Nontender, Nondistended and Normal Bowel Sounds
Musculoskeletal: No Clubbing, No Cyanosis and No Edema
Skin: Warm and Dry
Neuro: Awake, Alert and Oriented
Psych: Calm
[2024-08-13] MEDS: ZOLOFT 50 MG PO (08:09)
[2024-08-13 10:41] VITALS: BP 108/59; PULSE 74; O2SAT 96
[2024-08-13 15:00] VITALS: BP 115/62
--- NOTE | 2024-08-13 16:05 | DOWNTIME ---
There was a [employer] Downtime on 08/13/2024 from 1230 to 08/13/2024 at 1550. Downtime documentation of patient's care, including medication administrations, has been reconciled in the electronic record per guidelines. Refer to the
patient's paper chart under the miscellaneous tab to see printed paper medication records and downtime forms.
--- NOTE | 2024-08-13 16:23 | PTCARENOTE ---
pt D/C'd to [facility]. called daughter and provided room number, called [facility] for report,
== END 2024-08-13 16:23 | DRG 56 ==
LOC: 3 WEST ACU 17:31
PROVIDERS: Emergency Medicine; Radiology Vascular & Interventional Radiology; ADMITTING PHYSICIAN Hospitalist; ATTENDING PHYSICIAN Internal Medicine; CONSULT PHYSICIAN Physical Medicine & Rehabilitation; CONSULT PHYSICIAN Psychiatry & Neurology Clinical Neurophysiology; EMERGENCY PHYSICIAN Emergency Medicine; FAMILY PHYSICIAN Family Medicine
PROC: 30233S1 Transfusion of Nonautologous Globulin into Peripheral Vein, Percutaneous Approach (ICD-10-PCS; 2024-08-04)
PROC: 009U3ZX Drainage of Spinal Canal, Percutaneous Approach, Diagnostic (ICD-10-PCS; 2024-08-04)
PROC: B01B1ZZ Fluoroscopy of Spinal Cord using Low Osmolar Contrast (ICD-10-PCS; 2024-08-04)
DX: G20.A1 Parkinson's disease without dyskinesia, without mention of fluctuations (principal); G92.8 Other toxic encephalopathy; R44.3 Hallucinations, unspecified; R65.10 Systemic inflammatory response syndrome (SIRS) of non-infectious origin without acute organ dysfunction; I16.0 Hypertensive urgency; R32 Unspecified urinary incontinence; I10 Essential (primary) hypertension; E78.00 Pure hypercholesterolemia, unspecified; N32.81 Overactive bladder; F32.A Depression, unspecified; F41.9 Anxiety disorder, unspecified; R29.6 Repeated falls; R45.87 Impulsiveness; R41.3 Other amnesia; R51.9 Headache, unspecified; D72.819 Decreased white blood cell count, unspecified; R74.8 Abnormal levels of other serum enzymes; R90.82 White matter disease, unspecified; I95.9 Hypotension, unspecified; R73.9 Hyperglycemia, unspecified; I25.10 Atherosclerotic heart disease of native coronary artery without angina pectoris; K76.89 Other specified diseases of liver; N28.1 Cyst of kidney, acquired; K80.20 Calculus of gallbladder without cholecystitis without obstruction; R33.8 Other retention of urine; Z66 Do not resuscitate; Z91.148 Patient's other noncompliance with medication regimen for other reason; Z87.891 Personal history of nicotine dependence; Z91.81 History of falling; Z11.52 Encounter for screening for COVID-19; Z75.1 Person awaiting admission to adequate facility elsewhere
CPT/HCPCS: 51701; 62328; 70450; 70551; 70553; 71046; 71260; 74177; 74230; 80048; 80053; 81003; 81015; 82607; 82945; 82962; 83690; 84157; 84484; 85025; 85027; 85610; 86255; 87040; 87483; 87502; 87811; 89051; 92507; 92523; 92526; 92610; 92611; 93005; 95816; 96361; 96374; 96375; 97110; 97112; 97116; 97129; 97163; 97167; 97530; 97535; 99285; A9575; J1569; Q9967